=== PATIENT | male | born 1945 | race Caucasian/White ===

== ENCOUNTER 2018-01-09 08:27 | Day surgery (SDC) | payer MEDICARE, OTHER ==
[~2018-01-09 08:27] MED LIST: Lactated Ringers 1,000 ML IV SCH; Lidocaine 1% 2 ML ONE; Lidocaine 1%/Sod Bicarbonate in NS 8.4% 1 ML Syringe IDERM PRN; Propofol 200 MG/20 ML SDV ONE; Sodium Chloride 0.9% 10 ML Syringe FLUSH PRN
[2018-01-09] MEDS ORDERED: Propofol 200 MG/20 ML SDV ONE ×2 (09:20→10:03)
[2018-01-09] MEDS ORDERED: Lidocaine 1% 2 ML ONE (09:21)
--- NOTE | 2018-01-09 09:34 | PCM.PREANE ---
Preanesthetic Assessment - Anesthesia/Transfusion/Family Hx Anesthesia History: Prior Anesthesia Without Reaction Family History of Anesthesia Reaction: No - Review of Systems General: No Symptoms Pulmonary: Shortness of Breath (Chronic, COPD, Former Smoker, Feels good today. ), Other (Sleep Apnea, wears CPAP with sleep. ) Cardiovascular: No Symptoms, Other (CABG in 2003, denies chest pain episodes since. ) Neurological: Pre-Existing Deficit (Previous Cervical fusion, difficulty with side to side movement. ) Other: Reports: Diabetes (Type II on oral meications for control. 172 today at 0845. ) - Physical Assessment NPO Status Date: 01/09/18 NPO Status Time: 06:45 O2 Sat by Pulse Oximetry: 93 Respiratory Rate: 24 Vital Signs: Last Vital Signs Temp 36.6 C 01/09/18 08:35 Pulse 69 01/09/18 08:35 Resp 24 H 01/09/18 08:35 BP 147/78 H 01/09/18 08:35 Pulse Ox 93 L 01/09/18 08:35 ASA Class: 3 Mental Status: Alert & Oriented x3 Dentition: Reports: Normal Dentition Thyro-Mental Finger Breadths: 2 Mouth Opening Finger Breadths: 3 ROM/Head Extension: Full Lungs: Clear to Auscultation, Normal Respiratory Effort Cardiovascular: Regular Rate, Regular Rhythm - Lab Values: Laboratory Last Values POC Glucose 172 mg/dL (83-110) H 01/09/18 08:45 - Allergies Allergies/Adverse Reactions: Allergies Allergy/AdvReac Type Severity Reaction Status Date / Time No Known Allergies Allergy Verified 01/09/18 09:27 - Acknowledgements Anesthesia Type Planned: MAC Pt an Appropriate Candidate for the Planned Anesthesia: Yes Alternatives and Risks of Anesthesia Discussed w Pt/Guardian: Yes Pt/Guardian Understands and Agrees with Anesthesia Plan: Yes PreAnesthesia Questionnaire HEENT History: Reports: Hard of Hearing Cardiovascular History: Reports: Aneurysm, CAD, High Cholesterol, Hypertension Respiratory History: Reports: COPD, Sleep Apnea, Other (See Below) Other Respiratory History: lung nodules Genitourinary History: Reports: BPH, Other (See Below) Other Genitourinary History: renal cell ca Musculoskeletal History: Reports: Gout, Osteoarthritis Neurological History: Reports: None, Neuropathy, Diabetic Endocrine/Metabolic History: Reports: Diabetes, Type II Oncologic (Cancer) History: Reports: Other (See Below) Other Oncologic History: 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 - Past Surgical History Cardiovascular Surgical History: Reports: Coronary Artery Bypass Other Cardiovascular Surgeries/Procedures: 2 vessel GI Surgical History: Reports: Appendectomy, Colonoscopy Musculoskeletal Surgical History: Reports: Knee Replacement - SUBSTANCE USE Smoking Status *Q: Former Smoker Recreational Drug Use History: No - HOME MEDS Home Medications: Home Meds Allopurinol 100 mg PO DAILY 11/23/13 [History] Lisinopril [Prinivil] 10 mg PO DAILY 11/23/13 [History] Metoprolol Tartrate [Lopressor] 50 tab PO BID 11/23/13 [History] Tamsulosin HCl 0.4 mg PO DAILY 11/23/13 [History] Tiotropium [Spiriva Handihaler] 18 mcg INH DAILY 11/23/13 [History] atorvaSTATin [Lipitor] 40 mg PO BEDTIME 11/23/13 [History] Aspirin [Halfprin] 81 mg PO DAILY 09/10/14 [History] Gabapentin 600 mg PO BID 09/10/14 [History] metFORMIN [Glucophage XR] 500 mg PO DAILY 11/09/15 [History] - CURRENT (IN HOUSE) MEDS Current Meds: Current Medications Lactated Ringer's (Ringers, Lactated) 1,000 mls @ 125 mls/hr IV ASDIRECTED PEDRO Stop: 01/09/18 23:00 Last Admin: 01/09/18 08:48 Dose: 125 mls/hr Lidocaine/Sodium Bicarbonate (Buffered Lidocaine 1% In Ns 8.4%) 0.25 ml IDERM ONETIME PRN PRN Reason: Prior to IV Start Stop: 01/09/18 18:00 Sodium Chloride (Saline Flush) 10 ml FLUSH ASDIRECTED PRN PRN Reason: Keep Vein Open Stop: 01/09/18 18:00 Discontinued Medications Lidocaine HCl (Xylocaine-Mpf 1%) Confirm Administered Dose 4 mls @ as directed .ROUTE .STK-MED ONE Stop: 01/09/18 06:46 Lidocaine HCl (Xylocaine-Mpf 1%) Confirm Administered Dose 2 mls @ as directed .ROUTE .STK-MED ONE Stop: 01/09/18 09:22 Propofol (Diprivan 20 Ml) Confirm Administered Dose 200 mg .ROUTE .STK-MED ONE Stop: 01/09/18 06:42 Propofol (Diprivan 20 Ml) Confirm Administered Dose 200 mg .ROUTE .[facility] ONE Stop: 01/09/18 09:21
--- NOTE | 2018-01-09 10:27 | PCM48HPAN ---
Post Anesthesia Note - EVALUATION WITHIN 48HRS OF ANESTHETIC Vital Signs in Normal Range: Yes Patient Participated in Evaluation: Yes Respiratory Function Stable: Yes Airway Patent: Yes Cardiovascular Function Stable: Yes Hydration Status Stable: Yes Pain Control Satisfactory: Yes Nausea and Vomiting Control Satisfactory: Yes Mental Status Recovered: Yes Pulse Rate: 71 SaO2: 93 Resp Rate: 16 Temperature: 97.9 C Blood Pressure: 110/81 Pulse Rate: 71
[2018-01-09 11:02] VITALS: BP 117/81
--- NOTE | 2018-01-09 11:56 | OR ---
DATE OF OPERATION: 01/09/2018 SURGEON: Ras Champagne MD PREOPERATIVE DIAGNOSIS: Surveillance colonoscopy. POSTOPERATIVE DIAGNOSIS: Surveillance colonoscopy. OPERATION PERFORMED: Colonoscopy to cecum with removal of a flat 1 cm polyp in the ascending colon with cautery snare and retrieval in 2 morsels. FINDINGS: Flat polyp in the ascending colon about 1 cm and moderate sigmoid diverticulosis. There are no angiodysplasias, large tumor masses, ulcerations, or hemorrhoids. DESCRIPTION OF PROCEDURE: The patient was taken to the endoscopy room, placed in a supine position, connected to monitoring equipment, given IV sedation, placed in left lateral position. Perianal area was inspected and was normal. Rectal exam showed good sphincter tone. Video Olympus colonoscope was then introduced into the rectum and threaded up without problem to the cecum, where the appendicular orifice was noted. Prep was excellent throughout the colon. [place] cleansing score grade A. The scope was slowly withdrawn showing the cecum, ascending colon, transverse colon, descending colon, sigmoid colon, and rectum. Polyp on a fold was noted. It was sessile and was removed in 2 morsels by cautery snare and retrieved. A clip was placed on the cautery site. Specimen sent to pathology in a labeled container. The patient tolerated the procedure, sent to recovery room in a stable condition to be followed up in the clinic. ANESTHESIA: ESTIMATED BLOOD LOSS: MMODAL /[id number]
== END 2018-01-09 10:58 | disposition home or self-care (01) ==
LOC: JD.SDS 08:27
PROVIDERS: ATTEND Surgery
DX: Z12.11 Encounter for screening for malignant neoplasm of colon (principal); D12.2 Benign neoplasm of ascending colon; K57.30 Diverticulosis of large intestine without perforation or abscess without bleeding; I25.10 Atherosclerotic heart disease of native coronary artery without angina pectoris; I10 Essential (primary) hypertension; J44.9 Chronic obstructive pulmonary disease, unspecified; M10.9 Gout, unspecified; E11.40 Type 2 diabetes mellitus with diabetic neuropathy, unspecified; E78.5 Hyperlipidemia, unspecified; E66.9 Obesity, unspecified; Z68.36 Body mass index [BMI] 36.0-36.9, adult; G47.33 Obstructive sleep apnea (adult) (pediatric); Z99.89 Dependence on other enabling machines and devices; Z79.82 Long term (current) use of aspirin; Z79.84 Long term (current) use of oral hypoglycemic drugs; Z79.899 Other long term (current) drug therapy; Z87.891 Personal history of nicotine dependence; Z86.010 Personal history of colon polyps
CPT/HCPCS: 45385; 82962; 88305; J2704; J7120; 00811; J2001

== ENCOUNTER 2020-07-17 13:58 | Inpatient (IN) | payer MEDICARE, OTHER ==
--- NOTE | 2020-07-17 14:39 | EDM.PDOC ---
ED HPI GENERAL MEDICAL PROBLEM - General Chief Complaint: Syncope Stated Complaint: SYNCOPE Time Seen by Provider: 07/17/20 14:33 Source of Information: Reports: Patient, Family History Limitations: Reports: Other (can not remember how he ended up on the floor. ) - History of Present Illness INITIAL COMMENTS - FREE TEXT/NARRATIVE: 75-year-old male presents to the ED after awakening on the floor beside his bed in his bedroom this morning around 0700 hrs. He has no recollection of how he got down to the floor or when he may have fallen out of bed etc. He states he tried to get up and walk out to the living room but fell down again. He did not lose consciousness and remembers this fall. At present he he only has some pain in his left thigh. Denies any worsening cervical neck pain, headache nausea or vomiting.He did vomit once for no good reason two days ago. Unclear if he took his Metformin this morning earlier before he is fall. He does not leave believe he lost control of his bowel or bladder. Patient was aided out of the vehicle by his sister next door neighbor and his grandson with a shuffling type gait and seems to be extremely weak. Patient has a history of coronary artery disease having had triple bypass surgery carried out in 2002 or 2003. He is also had thoracic aortic graft placement. No past history of stroke. This history was provided by his daughter. Onset: Today Onset Date: 07/17/20 (Awoke on the floor beside his bed this morning around 0700 hrs. He has no recollection of how or how long he has been on the floor. Not sure if he rolled out of bed or fell during the night. He got up and staggered out to the living room and fell again. He never lost consciousness or hit his h ead and he got himself back up at that time.) Onset Time: 07:00 Duration: Other Location: Reports: Generalized (Sense of generalized weakness with difficulty walking.) Quality: Reports: Other (Syncope versus) Severity: Moderate (fall at home x2 today.) Improves with: Reports: None Worsens with: Reports: Other (Worse with standing up or trying to walk.) Context: Denies: Activity, Exercise, Lifting, Sick Contact, Trauma, Other Associated Symptoms: Reports: Cough, Malaise, Nausea/Vomiting, Shortness of Breath, Weakness (Vomited spontaneously 3 days ago but just the one time.). 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 (see below) (He has taken none of his medications so far today.) Back Pain Score (Numeric/FACES): 3 - Related Data Allergies Allergy/AdvReac Type Severity Reaction Status Date / Time No Known Allergies Allergy Verified 01/09/18 09:27 Home Meds: Home Meds Metoprolol Tartrate [Lopressor] 50 tab PO BID 11/23/13 [History] Tamsulosin HCl 0.4 mg PO DAILY 11/23/13 [History] Tiotropium [Spiriva Handihaler] 18 mcg INH DAILY 11/23/13 [History] allopurinoL [Allopurinol] 100 mg PO DAILY 11/23/13 [History] atorvaSTATin [Lipitor] 40 mg PO BEDTIME 11/23/13 [History] lisinopriL [Prinivil] 10 mg PO DAILY 11/23/13 [History] Aspirin [Halfprin] 81 mg PO DAILY 09/10/14 [History] Gabapentin 600 mg PO BID 09/10/14 [History] metFORMIN [Glucophage XR] 500 mg PO DAILY 11/09/15 [History] Past Medical History HEENT History: Reports: Hard of Hearing Cardiovascular History: Reports: Aneurysm, CAD, High Cholesterol, Hypertension Respiratory History: Reports: COPD, Sleep Apnea, Other (See Below) Other Respiratory History: lung nodules Genitourinary History: Reports: BPH, Other (See Below) Other Genitourinary History: renal cell ca Musculoskeletal History: Reports: Back Pain, Chronic, Gout, Osteoarthritis, Other (See Below) (Both knees have been replaced totally.) Neurological History: Reports: None, Neuropathy, Diabetic Endocrine/Metabolic History: Reports: Diabetes, Type II (Controlled with diet and Metformin.) Oncologic (Cancer) History: Reports: Other (See Below) Other Oncologic History: 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 - Past Surgical History Cardiovascular Surgical History: Reports: Coronary Artery Bypass Other Cardiovascular Surgeries/Procedures: 2 vessel GI Surgical History: Reports: Appendectomy, Colonoscopy Musculoskeletal Surgical History: Reports: Knee Replacement, Other (See Below) (Previous cervical spine fusion he believes at C6-C7 level.) Social & Family History - Caffeine Use Caffeine Use: Reports: Coffee - Living Situation & Occupation Living situation: Reports: Occupation: Retired ED ROS GENERAL - Review of Systems Review Of Systems: See Below Constitutional: Reports: Malaise, Weakness, Fatigue, Decreased Appetite (Not eaten much for the last 2 to 3 days.). Denies: Fever, Chills HEENT: Reports: Glasses, Hearing Loss, Other (Does have some visual acuity problems with mild macular degeneration.) Respiratory: Reports: Shortness of Breath (Mildly hard of hearing.), Cough, Other ( Has known COPD but is not oxygen dependent.). Denies: Pleuritic Chest Pain (Has sleep apnea syndrome and does wear CPAP machine.) Cardiovascular: Reports: Dyspnea on Exertion, Lightheadedness (Blood pressure often runs too low.). Denies: Chest Pain, Blood Pressure Problem (Is to run on the low side.), Edema Endocrine: Reports: Fatigue GI/Abdominal: Reports: Constipation, Other (He reports he is hungry at this point in time.). Denies: Abdominal Pain, Distension, Flatus, Hematemesis, Hematochezia, Melena, Nausea : Reports: Frequency, Other (Terrell usually x3. Slow urinary stream. Known to have BPH. No history of previous UTI) Musculoskeletal: Reports: Back Pain, Joint Pain (Both knees have been replaced in the past. Has chronic shoulder pain chronic left-sided cervical neck pain chronic hip pain) Skin: Reports: Other (Tree of cellulitis left lower extremity. Currently has a rash in his left lower extremity which is petechial hemorrhages in the left lower extremity from chronic dependent edema. This is the leg that he had the veins harvested from for his bypass surgery.) Neurological: Reports: Confusion (Confusion as to how he ended up on the floor beside his bed this morning. He is not sure if he rolled out of bed or fell during the night.), Dizziness, Difficulty Walking (Both lower extremities), Weakness, Gait Disturbance, Other (Usually walks with no gait aid.). Denies: Headache, Numbness, Syncope, Tingling, Tremors, Trouble Speaking ( marked difficulty walking. Two-person assist.), Change in Speech Psychiatric: Denies: No Symptoms, Anxiety, Confusion, Cravings, Depression, Homicidal Ideation, Mood Lability, Suicidal Ideation Hematologic/Lymphatic: Reports: No Symptoms Immunologic: Reports: No Symptoms - Physical Exam Exam: See Below Exam Limited By: No Limitations General Appearance: Alert, WD/WN, No Apparent Distress, Other (He appears mild to be pallid and tired in appearance. He does not feel warm to palpation. Temperature is 36.4 heart rate 115 and sinus tachycardia on the monitor respiratory to 36 with O2 sats of 92% room air BP 100/68.) Eye Exam: Bilateral Eye: Normal Inspection (No blepharal pallor or scleral icterus.), PERRL (No gaze palsy no diplopia. No anisocoria) Throat/Mouth: Normal Inspection, Normal Lips, Normal Oropharynx, Other (Tongue is dry and coated and fissured.). No: Normal Teeth Head Exam: Atraumatic, Normocephalic, Other (No outward signs of any head or facial trauma.) Neck: Full Range of Motion (Full range of motion of neck but pain with looking to the right. Pain left lower neck area), Other (Reports he has chronic cervical neck pain with previous spinal fusion at 2 levels he believes C6-C7.). No: Supple, Carotid Bruit, Lymphadenopathy (L), Lymphadenopathy (R) Respiratory/Chest: Respiratory Distress, Decreased Breath Sounds, Rales (Tachypnea at rest. Decreased air entry to both lower lung c[place]). No: Lungs Clear, Normal Breath Sounds ( scattered rales both lower lung ced[place].), Wheezing Cardiovascular: No Gallop, No Murmur, No Rub, Tachycardia (Sinus tachycardia at rest). No: Normal Peripheral Pulses GI/Abdominal: Normal Bowel Sounds, Soft, Non-Tender, No Mass, Pelvis Stable, Other (Umbilical hernia which is easily reducible.). No: Guarding, Rigid, Rebound Rectal (Males) Exam: Normal Rectal Tone, BPH (Prostate is approximately 3-1/2 times normal size with the right lobe slightly more prominent than the left. No definitive induration or fluctuation identified.). No: Prostate Normal Neuro Exam (Abbreviated): Alert, Oriented, CN II-XII Intact, Normal Cognition, Other (Clinically has decreased sensation in the stocking pattern of both feet suspect diabetic peripheral neuropathy). No: Normal Gait DTR: 0: Achilles (R), Achilles (L), 1+: Bicep (R), Bicep (L), Patella (R), Patella (L) Back Exam: Normal Inspection, Decreased Range of Motion (Trouble sitting up from the position in bed.). No: CVA Tenderness (L), CVA Tenderness (R) Extremities: Pedal Edema (He has 2+ pitting edema left lower extremity with diffuse petechial hemorrhages both particularly medial aspect of the left lower leg as well as odor or lateral leg. This will turn to venous stasis dermatitis. There is no evidence of cellulitis) Psychiatric: Normal Affect, Normal Mood Skin Exam: Warm, Intact, Normal Color, Other (TQ-like rash left lower extremity due to edema of the left lower extremity.) #1 Interpretation EKG Date: 07/17/20 Time: 15:16 Rhythm: Other Rate (Beats/Min): 113 [place]: LAD-Left [place] Deviation (-65 degrees) P-Wave: Present (First-degree AV block) QRS: Other (Abnormal R wave progression with delayed transition decreased voltage limb leads) QT: Prolonged (Mildly prolonged) EKG Interpretation Comments: Abnormal ECG Course - Vital Signs Last Recorded V/S: Last Vital Signs Temp 36.4 C 07/17/20 14:20 Pulse 115 H 07/17/20 14:20 Resp 36 H 07/17/20 14:20 BP 100/68 07/17/20 14:20 Pulse Ox 88 L 07/17/20 15:50 Orthostatic Blood Pressure [ 102/78 Standing] Orthostatic Blood Pressure [ 122/76 Sitting] Orthostatic Blood Pressure [ 100/68 Supine] - Orders/Labs/Meds Orders: Active Orders 24 hr Category Date Time Status Admission Status [Patient Status] [ADT] Routine ADT 07/17/20 18:23 Active Blood Glucose Check, Bedside [RC] ONETIME Care 07/17/20 15:14 Active EKG Documentation Completion [RC] STAT Care 07/17/20 14:36 Active EKG Documentation Completion [RC] STAT Care 07/17/20 14:39 Active Oxygen Therapy [RC] ASDIRECTED Care 07/17/20 14:36 Active Chest 1V Frontal [CR] Stat Exams 07/17/20 14:36 Taken CULTURE BLOOD [BC] Stat Lab 07/17/20 15:05 Received CULTURE BLOOD [BC] Stat Lab 07/17/20 15:15 Received LACTIC ACID [CHEM] Stat Lab 07/17/20 20:00 Ordered TROPONIN I [CHEM] Stat Lab 07/17/20 20:00 Ordered URIC ACID, URINE Stat Lab 07/17/20 16:45 Received Blood Culture x2 Reflex Set [OM.PC] Stat Oth 07/17/20 14:37 Ordered Labs: Laboratory Tests 07/17/20 07/17/20 07/17/20 Range/Units 15:05 15:05 15:05 WBC 15.19 H (4.23-9.07) K/mm3 RBC 5.22 (4.63-6.08) M/mm3 Hgb 15.2 (13.7-17.5) gm/dl Hct 45.1 (40.1-51.0) % MCV 86.4 (79.0-92.2) fl MCH 29.1 (25.7-32.2) pg MCHC 33.7 (32.2-35.5) g/dl RDW Std Deviation 43.3 (35.1-43.9) fL Plt Count 167 (163-337) K/mm3 MPV 9.7 (9.4-12.3) fl Neut % (Auto) 85.1 H (34.0-67.9) % Lymph % (Auto) 6.1 L (21.8-53.1) % [place] % (Auto) 8.4 (5.3-12.2) % Eos % (Auto) 0 L (0.8-7.0) Baso % (Auto) 0.1 (0.1-1.2) % Neut # (Auto) 12.95 H (1.78-5.38) K/mm3 Lymph # (Auto) 0.92 L (1.32-3.57) K/mm3 [place] # (Auto) 1.27 H (0.30-0.82) K/mm3 Eos # (Auto) 0.00 L (0.04-0.54) K/mm3 Baso # (Auto) 0.01 (0.01-0.08) K/mm3 Manual Slide Review Abnormal smear ESR (0-15) mm/hr PT 11.1 (9.7-12.0) SECONDS INR 1.04 APTT 25.2 (21.7-31.4) SECONDS Sodium 136 (136-145) mEq/L Potassium 4.1 (3.5-5.1) mEq/L Chloride 99 (98-107) mEq/L Carbon Dioxide 22 (21-32) mEq/L Anion Gap 19.1 H (5-15) BUN 25 H (7-18) mg/dL Creatinine 1.6 H (0.7-1.3) mg/dL Est Cr Clr Drug Dosing 43.70 mL/min Estimated GFR (MDRD) 42 (>60) mL/min BUN/Creatinine Ratio 15.6 (14-18) Glucose 270 H (83-115) mg/dL POC Glucose (83-110) mg/dL Hemoglobin A1c ( - 5.6) % Lactic Acid (0.4-2.0) mmol/L Calcium 9.8 (8.5-10.1) mg/dL Magnesium 1.8 (1.8-2.4) mg/dl Total Bilirubin 0.8 (0.2-1.0) mg/dL AST 36 (15-37) U/L ALT 39 (16-63) U/L Alkaline Phosphatase 69 (46-116) U/L Creatine Kinase (39-308) U/L CK-MB (CK-2) 9.0 H (0-3.6) ng/ml Troponin I 0.229 H* (0.00-0.056) ng/mL C-Reactive Protein 21.2 H* (<1.0) mg/dL NT-Pro-B Natriuret Pep (0-450) pg/mL Total Protein 7.7 (6.4-8.2) g/dl Albumin 3.6 (3.4-5.0) g/dl Globulin 4.1 gm/dL Albumin/Globulin Ratio 0.9 L (1-2) Urine Color (Yellow) Urine Appearance (Clear) Urine pH (5.0-8.0) Ur Specific [place] (1.005-1.030) Urine Protein (Negative) Urine Glucose (UA) (Negative) Urine Ketones (Negative) Urine Occult Blood (Negative) Urine Nitrite (Negative) Urine Bilirubin (Negative) Urine Urobilinogen (0.2-1.0) Ur Leukocyte Esterase (Negative) U Hyaline Cast (Auto) (0-5) /lpf Urine RBC (0-5) /hpf Urine WBC (0-5) /hpf Ur Epithelial Cells (0-5) /hpf Urine Bacteria (FEW) /hpf Urine Mucus (FEW) /hpf Urine Yeast (NOT SEEN) Ethyl Alcohol (0.00) gm% SARS-CoV-2 RNA (AMALIA) (NEGATIVE) 07/17/20 07/17/20 07/17/20 Range/Units 15:05 15:05 15:05 WBC (4.23-9.07) K/mm3 RBC (4.63-6.08) M/mm3 Hgb (13.7-17.5) gm/dl Hct (40.1-51.0) % MCV (79.0-92.2) fl MCH (25.7-32.2) pg MCHC (32.2-35.5) g/dl RDW Std Deviation (35.1-43.9) fL Plt Count (163-337) K/mm3 MPV (9.4-12.3) fl Neut % (Auto) (34.0-67.9) % Lymph % (Auto) (21.8-53.1) % [place] % (Auto) (5.3-12.2) % Eos % (Auto) (0.8-7.0) Baso % (Auto) (0.1-1.2) % Neut # (Auto) (1.78-5.38) K/mm3 Lymph # (Auto) (1.32-3.57) K/mm3 [place] # (Auto) (0.30-0.82) K/mm3 Eos # (Auto) (0.04-0.54) K/mm3 Baso # (Auto) (0.01-0.08) K/mm3 Manual Slide Review ESR 20 H (0-15) mm/hr PT (9.7-12.0) SECONDS INR APTT (21.7-31.4) SECONDS Sodium (136-145) mEq/L Potassium (3.5-5.1) mEq/L Chloride (98-107) mEq/L Carbon Dioxide (21-32) mEq/L Anion Gap (5-15) BUN (7-18) mg/dL Creatinine (0.7-1.3) mg/dL Est Cr Clr Drug Dosing mL/min Estimated GFR (MDRD) (>60) mL/min BUN/Creatinine Ratio (14-18) Glucose (83-115) mg/dL POC Glucose (83-110) mg/dL Hemoglobin A1c ( - 5.6) % Lactic Acid (0.4-2.0) mmol/L Calcium (8.5-10.1) mg/dL Magnesium (1.8-2.4) mg/dl Total Bilirubin (0.2-1.0) mg/dL AST (15-37) U/L ALT (16-63) U/L Alkaline Phosphatase (46-116) U/L Creatine Kinase 1245 H (39-308) U/L CK-MB (CK-2) (0-3.6) ng/ml Troponin I (0.00-0.056) ng/mL C-Reactive Protein (<1.0) mg/dL NT-Pro-B Natriuret Pep 1919 H (0-450) pg/mL Total Protein (6.4-8.2) g/dl Albumin (3.4-5.0) g/dl Globulin gm/dL Albumin/Globulin Ratio (1-2) Urine Color (Yellow) Urine Appearance (Clear) Urine pH (5.0-8.0) Ur Specific [place] (1.005-1.030) Urine Protein (Negative) Urine Glucose (UA) (Negative) Urine Ketones (Negative) Urine Occult Blood (Negative) Urine Nitrite (Negative) Urine Bilirubin (Negative) Urine Urobilinogen (0.2-1.0) Ur Leukocyte Esterase (Negative) U Hyaline Cast (Auto) (0-5) /lpf Urine RBC (0-5) /hpf Urine WBC (0-5) /hpf Ur Epithelial Cells (0-5) /hpf Urine Bacteria (FEW) /hpf Urine Mucus (FEW) /hpf Urine Yeast (NOT SEEN) Ethyl Alcohol 0.00 (0.00) gm% SARS-CoV-2 RNA ([place]) (NEGATIVE) 07/17/20 07/17/20 07/17/20 Range/Units 15:05 15:13 15:43 WBC (4.23-9.07) K/mm3 RBC (4.63-6.08) M/mm3 Hgb (13.7-17.5) gm/dl Hct (40.1-51.0) % MCV (79.0-92.2) fl MCH (25.7-32.2) pg MCHC (32.2-35.5) g/dl RDW Std Deviation (35.1-43.9) fL Plt Count (163-337) K/mm3 MPV (9.4-12.3) fl Neut % (Auto) (34.0-67.9) % Lymph % (Auto) (21.8-53.1) % [place] % (Auto) (5.3-12.2) % Eos % (Auto) (0.8-7.0) Baso % (Auto) (0.1-1.2) % Neut # (Auto) (1.78-5.38) K/mm3 Lymph # (Auto) (1.32-3.57) K/mm3 [place] # (Auto) (0.30-0.82) K/mm3 Eos # (Auto) (0.04-0.54) K/mm3 Baso # (Auto) (0.01-0.08) K/mm3 Manual Slide Review ESR (0-15) mm/hr PT (9.7-12.0) SECONDS INR APTT (21.7-31.4) SECONDS Sodium (136-145) mEq/L Potassium (3.5-5.1) mEq/L Chloride (98-107) mEq/L Carbon Dioxide (21-32) mEq/L Anion Gap (5-15) BUN (7-18) mg/dL Creatinine (0.7-1.3) mg/dL Est Cr Clr Drug Dosing mL/min Estimated GFR (MDRD) (>60) mL/min BUN/Creatinine Ratio (14-18) Glucose (83-115) mg/dL POC Glucose (83-110) mg/dL Hemoglobin A1c 8.1 H ( - 5.6) % Lactic Acid 3.1 H* (0.4-2.0) mmol/L Calcium (8.5-10.1) mg/dL Magnesium (1.8-2.4) mg/dl Total Bilirubin (0.2-1.0) mg/dL AST (15-37) U/L ALT (16-63) U/L Alkaline Phosphatase (46-116) U/L Creatine Kinase (39-308) U/L CK-MB (CK-2) (0-3.6) ng/ml Troponin I (0.00-0.056) ng/mL C-Reactive Protein (<1.0) mg/dL NT-Pro-B Natriuret Pep (0-450) pg/mL Total Protein (6.4-8.2) g/dl Albumin (3.4-5.0) g/dl Globulin gm/dL Albumin/Globulin Ratio (1-2) Urine Color (Yellow) Urine Appearance (Clear) Urine pH (5.0-8.0) Ur Specific [place] (1.005-1.030) Urine Protein (Negative) Urine Glucose (UA) (Negative) Urine Ketones (Negative) Urine Occult Blood (Negative) Urine Nitrite (Negative) Urine Bilirubin (Negative) Urine Urobilinogen (0.2-1.0) Ur Leukocyte Esterase (Negative) U Hyaline Cast (Auto) (0-5) /lpf Urine RBC (0-5) /hpf Urine WBC (0-5) /hpf Ur Epithelial Cells (0-5) /hpf Urine Bacteria (FEW) /hpf Urine Mucus (FEW) /hpf Urine Yeast (NOT SEEN) Ethyl Alcohol (0.00) gm% SARS-CoV-2 RNA ([place]) Negative (NEGATIVE) 07/17/20 07/17/20 Range/Units 15:45 16:45 WBC (4.23-9.07) K/mm3 RBC (4.63-6.08) M/mm3 Hgb (13.7-17.5) gm/dl Hct (40.1-51.0) % MCV (79.0-92.2) fl MCH (25.7-32.2) pg MCHC (32.2-35.5) g/dl RDW Std Deviation (35.1-43.9) fL Plt Count (163-337) K/mm3 MPV (9.4-12.3) fl Neut % (Auto) (34.0-67.9) % Lymph % (Auto) (21.8-53.1) % [place] % (Auto) (5.3-12.2) % Eos % (Auto) (0.8-7.0) Baso % (Auto) (0.1-1.2) % Neut # (Auto) (1.78-5.38) K/mm3 Lymph # (Auto) (1.32-3.57) K/mm3 [place] # (Auto) (0.30-0.82) K/mm3 Eos # (Auto) (0.04-0.54) K/mm3 Baso # (Auto) (0.01-0.08) K/mm3 Manual Slide Review ESR (0-15) mm/hr PT (9.7-12.0) SECONDS INR APTT (21.7-31.4) SECONDS Sodium (136-145) mEq/L Potassium (3.5-5.1) mEq/L Chloride (98-107) mEq/L Carbon Dioxide (21-32) mEq/L Anion Gap (5-15) BUN (7-18) mg/dL Creatinine (0.7-1.3) mg/dL Est Cr Clr Drug Dosing mL/min Estimated GFR (MDRD) (>60) mL/min BUN/Creatinine Ratio (14-18) Glucose (83-115) mg/dL POC Glucose 262 H (83-110) mg/dL Hemoglobin A1c ( - 5.6) % Lactic Acid (0.4-2.0) mmol/L Calcium (8.5-10.1) mg/dL Magnesium (1.8-2.4) mg/dl Total Bilirubin (0.2-1.0) mg/dL AST (15-37) U/L ALT (16-63) U/L Alkaline Phosphatase (46-116) U/L Creatine Kinase (39-308) U/L CK-MB (CK-2) (0-3.6) ng/ml Troponin I (0.00-0.056) ng/mL C-Reactive Protein (<1.0) mg/dL NT-Pro-B Natriuret Pep (0-450) pg/mL Total Protein (6.4-8.2) g/dl Albumin (3.4-5.0) g/dl Globulin gm/dL Albumin/Globulin Ratio (1-2) Urine Color Yellow (Yellow) Urine Appearance Clear (Clear) Urine pH 5.5 (5.0-8.0) Ur Specific [place] > or = 1.030 (1.005-1.030) Urine Protein 3+ H (Negative) Urine Glucose (UA) 2+ H (Negative) Urine Ketones Trace H (Negative) Urine Occult Blood 3+ H (Negative) Urine Nitrite Negative (Negative) Urine Bilirubin Negative (Negative) Urine Urobilinogen 0.2 (0.2-1.0) Ur Leukocyte Esterase Negative (Negative) U Hyaline Cast (Auto) 10-20 H (0-5) /lpf Urine RBC 0-5 (0-5) /hpf Urine WBC 0-5 (0-5) /hpf Ur Epithelial Cells 0-5 (0-5) /hpf Urine Bacteria Moderate H (FEW) /hpf Urine Mucus Few (FEW) /hpf Urine Yeast Rare (NOT SEEN) Ethyl Alcohol (0.00) gm% SARS-CoV-2 RNA ([place]) (NEGATIVE) Meds: Medications Discontinued Medications Generic Name Dose Route Start Last Admin Trade Name Lachoq PRN Reason Stop Dose Admin Acetaminophen 975 mg 07/17/20 16:33 07/17/20 16:59 Tylenol PO 07/17/20 16:34 975 mg ONETIME ONE Administration Dextrose/Sodium Chloride 1,000 mls @ 125 mls/hr 07/17/20 14:45 Dextrose 5%-Normal Saline IV ASDIRECTED [facility] Sodium Chloride Confirm 07/17/20 15:47 07/17/20 15:52 Normal Saline Administered 07/17/20 15:48 Not Given Dose 1,000 mls @ as directed .ROUTE .STK-MED ONE Sodium Chloride 500 mls @ 999 mls/hr 07/17/20 15:47 07/17/20 15:50 Normal Saline IV 07/17/20 16:17 999 mls/hr .BOLUS ONE Administration Sodium Chloride 1,000 mls @ 999 mls/hr 07/17/20 16:35 07/17/20 17:35 Normal Saline IV 07/17/20 17:35 999 mls/hr ONETIME ONE Administration Ceftriaxone Sodium 2 gm/ 100 mls @ 200 mls/hr 07/17/20 16:50 07/17/20 17:01 Sodium Chloride IV 07/17/20 17:19 200 mls/hr ONETIME ONE Administration Vancomycin HCl 2 gm/ Sodium 500 mls @ 250 mls/hr 07/17/20 18:20 Chloride IV 07/17/20 18:21 ONETIME ONE Sodium Chloride Confirm 07/17/20 19:37 Normal Saline Administered 07/17/20 19:38 Dose 250 mls @ as directed .ROUTE .STK-MED ONE Vancomycin HCl Confirm 07/17/20 19:29 Vancomycin Administered 07/17/20 19:30 Dose 1 gm [facility]iology Interpretation Free Text/Narrative:: 75-year-old male presents to the ED in the company of a sister and next-door neighbor and the patient's grandson. It is unclear how he wound up on the floor beside his bed this morning at 0700 hrs. He cannot remember how he got there or when he got there. He remembers getting up to get out to the living room and once again fell in the living room and had a great deal of trouble getting back up. He denies headache. He states he has not eaten much in the last 2 to 3 days. He still states he has been taking his Metformin for diabetes and has not checked his sugars. Family brought him to the ED with 2-3 person assist with a shuffling type gait by the patient. His only pain is in his left anterior thigh. He has a history of severe coronary disease requiring quadruple bypass in 2002 or 2003. 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 Type 2 diabetes for greater than 5 years. Denies any recent chest pain denies headache. Because of weakness has yet to be determined. He is afebrile on initial evaluation he is sinus tachycardia at 11 3/min at bedside. He appears volume depleted. Patient will be given a 250 mill fluid bolus and then D5 normal saline at [address] head to be done chest x-ray ECG routine labs blood cultures x2 and a COVID-19 screen as it appears he is likely going to need admission to the hospital. Has a history of prostatism no history of urinary tract infection. - Re-Assessments/Exams Free Text/Narrative Re-Assessment/Exam: 07/17/20 15:27 CT head has been completed without contrast. Ventricles along with the basal cisterns and sulci of the convexities are mildly prominent. Minimal diminished density is noted within the periventricular white matter. No other abnormal parenchymal densities are appreciated. No evidence of intracranial hemorrhage or midline shift or mass-effect is seen. 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 Atherosclerotic calcification is also appreciated within the carotid siphon. Bone window settings were reviewed which show no acute calvarial findings visualized mastoid sinuses and paranasal sinuses showed nothing acute 07/17/20 15:34 Portable chest x-ray reveals normal-sized heart with mild tortuous thoracic aorta. He does have a 12 mm x 5 mm nodule right middle lobe of lung field with well demarcated borders. No pleural effusion no pneumothorax.Hematology reveals an elevated white count at 15.19 with 85.1% neutrophils on the auto differential. Hemoglobin is 15.2 with hematocrit of 45.1 platelet count 167,000. 07/17/20 15:51 blood sugar was reported to be 262 at the bedside. IV fluids will be changed to normal saline. He will be given a 500 mill fluid bolus then 150 mils per hour. 07/17/20 16:21 Hematology smear reveals adequate platelets with normal morphology. White count shows neutrophilia with lymphopenia few few neutrophils and bands cells seen. PT is 11.1 with an INR of 1.04. PTT is 25.2. Sodium 136 with a potassium of 4.1 chloride of 99 a bicarb of 22. Anion gap is elevated at 19.1. BUN is 25 with a creatinine of 1.6 and a GFR 42. Patient appears to be volume depleted glucose is elevated at 270 in the lab was 262 at the bedside. Hemoglobin A1c is elevated at 8.1. Calcium is 9.8 with a magnesium of 1.8 liver function is normal CPK is 1245. CK-MB fraction is markedly elevated at 9.0 likely due to the elevated total CPK. Troponin I however is elevated at 0.229 worrisome for underlying coronary artery disease. C-reactive protein is markedly elevated at 21.2 suggestive of an infection. BNP is 1919. Total protein is 7.7 with an albumin fraction of 3.7 .Blood alcohol is 0.00. COVID-19 screen is negative. Sed rate is 20. Plan will be to continue IV normal saline up to a total of 3 L per sepsis protocol. 07/17/20 16:34 Reexamination the patient now is definitely febrile to exam. Blood pressure has fallen to 98/63 with a heart rate of 113/min. He is not yet been able to void. He has had a 500 mils fluid bolus. IV will now be opened up to full. We will give him Tylenol 975 mg for fever relief 07/17/20 16:49 Lactic acid came back at 3.1. Repeat lactic acid will be done at 2000 hrs. IV is normal saline at open. Patient will be given IV antibiotics Rocephin 2 g intravenously as soon as cath urine specimen is obtained for culture. Patient will require admission to the hospital and I will therefore contact on-call hospitalist Dr. Alejandra in this regard. 07/17/20; 17;10: Dr. Maddox did come to the department and we discussed the patient need to come into the hospital as he is unable to walk and appears to have an underlying infective process of unclear etiology at this time. Urinalysis is not yet back and it appears that catheterize specimen will have to be obtained. 07/17/20 18:19 Urinalysis shows 3+ proteinuria 2+ glucosuria 3+ occult blood negative leukocyte esterase but 10-20 hyaline casts moderate bacteria urine culture has been ordered. Patient has received 2 L of normal saline thus far and blood pressure is stabilized at 113/82. 07/17/20 18:20 the source of this patient's infection is not yet been declared. We will await culture reports. I am Going to give him vancomycin 2 g IV as he is at risk of MRSA due to being diabetic. This will cover him for the next 24 hours. 07/17/20 20:10 Patient is due for repeat lactic acid and cardiac markers at 2000 hrs. spoken to one of the patient's daughters--Karrie whom resides in [place]. She had concerns about the elevated troponin not being addressed sooner. She was concerned that the patient was no longer a candidate for thrombolytics. Thrombolytics are not indicated for non-STEMI myocardial infarction's at any rate. However heparin infusion would be started if we felt that he did indeed have a myocardial infarction. His ECG does not show any signs of acute ischemic change at this time. Elevated troponin is most likely secondary to chronic congestive failure and renal insufficiency. Repeat serum troponin is pending as it was drawn at 2000 hrs. Patient has subsequently been admitted to the med surgery floor and Dr. Maddox hospitalist has now taken over care. Patient is being admitted primarily for suspect infective process with early sepsis of unclear etiology. I have provided Dr. Maddox with Karrie's phone number in [place] and she wishes to be notified of the laboratory results I lactic acid and serum troponin values once they become available. Departure - Departure Time of Disposition: 18:21 Disposition: Admitted As Inpatient 64 Condition: Fair Clinical Impression: Generalized weakness Fall as cause of accidental injury at home as place of occurrence Qualifiers: Encounter type: initial encounter Qualified Code(s): W19.XXXA - Unspecified fall, initial encounter Contusion of right hip and thigh Qualifiers: Encounter type: initial encounter Qualified Code(s): S70.01XA - Contusion of right hip, initial encounter Diabetes mellitus Qualifiers: Chronic kidney disease stage: stage 3 (moderate) CHF (congestive heart failure), NYHA class III Qualifiers: Congestive heart failure type: diastolic Congestive heart failure chronicity: acute on chronic Qualified Code(s): I50.33 - Acute on chronic diastolic (congestive) heart failure - Discharge Information Sepsis Event Note (ED) - Evaluation Sepsis Screening Result: No Definite Risk - Focused Exam Vital Signs: Vital Signs Temp Pulse Resp BP Pulse Ox Pulse Ox 07/17/20 15:50 88 L 07/17/20 14:20 36.4 C 115 H 36 H 100/68 91 L - My Orders Last 24 Hours: My Active Orders 07/17/20 14:36 EKG Documentation Completion [RC] STAT Oxygen Therapy [RC] ASDIRECTED Chest 1V Frontal [CR] Stat 07/17/20 14:37 Blood Culture x2 Reflex Set [OM.PC] Stat 07/17/20 14:39 EKG Documentation Completion [RC] STAT 07/17/20 15:05 CULTURE BLOOD [BC] Stat 07/17/20 15:14 Blood Glucose Check, Bedside [RC] ONETIME 07/17/20 15:15 CULTURE BLOOD [BC] Stat 07/17/20 16:45 URIC ACID, URINE Stat 07/17/20 18:23 Admission Status [Patient Status] [ADT] Routine 07/17/20 20:00 LACTIC ACID [CHEM] Stat TROPONIN I [CHEM] Stat - Assessment/Plan Last 24 Hours: My Active Orders 07/17/20 14:36 EKG Documentation Completion [RC] STAT Oxygen Therapy [RC] ASDIRECTED Chest 1V Frontal [CR] Stat 07/17/20 14:37 Blood Culture x2 Reflex Set [OM.PC] Stat 07/17/20 14:39 EKG Documentation Completion [RC] STAT 07/17/20 15:05 CULTURE BLOOD [BC] Stat 07/17/20 15:14 Blood Glucose Check, Bedside [RC] ONETIME 07/17/20 15:15 CULTURE BLOOD [BC] Stat 07/17/20 16:45 URIC ACID, URINE Stat 07/17/20 18:23 Admission Status [Patient Status] [ADT] Routine 07/17/20 20:00 LACTIC ACID [CHEM] Stat TROPONIN I [CHEM] Stat
[2020-07-17] MEDS ORDERED: Dextrose 5%-0.9% NaCl 1,000 ML IV SCH (14:45)
--- NOTE | 2020-07-17 15:06 | CT ---
Head CT Technique: Multiple axial sections through the brain were obtained. Intravenous contrast was not utilized. Comparison: No prior intracranial imaging is available. Findings: Ventricles along the basal cisterns and sulci of the convexities are mildly prominent. Minimal diminished density is noted within the periventricular white matter. No other abnormal parenchymal densities are appreciated. No evidence of intracranial hemorrhage. No midline shift or mass-effect is seen. 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 Atherosclerotic calcification is also noted within the carotid siphon. Bone window settings were reviewed which show no acute calvarial finding. Visualized mastoid sinuses and visualized paranasal sinuses show nothing acute. Impression: 1. Mild senescent change as noted above. 2. Nothing acute is appreciated. Diagnostic code #2
[2020-07-17] MEDS ORDERED: Sodium Chloride 0.9% 1,000 ML ONE (15:47)
[2020-07-17] MEDS ORDERED: Sodium Chloride 0.9% 500 ML IV ONE (15:47)
[2020-07-17 15:50] LABS: HEMOGLOBIN A1C 8.1 %
[2020-07-17] MEDS ORDERED: Acetaminophen 325 MG Tab PO ONE (16:33)
[2020-07-17] MEDS ORDERED: Sodium Chloride 0.9% 1,000 ML IV ONE (16:35)
[2020-07-17] MEDS ORDERED: cefTRIAXone 2 GM in Sodium Chloride 0.9% 100 ML IV ONE (16:50)
[2020-07-17] MEDS ORDERED: Vancomycin 2 GM in Sodium Chloride 0.9% 500 ML IV ONE ×2 (18:20→21:30)
[2020-07-17] MEDS ORDERED: Vancomycin 1 GM SDV ONE (19:29)
[2020-07-17] MEDS ORDERED: Sodium Chloride 0.9% 250 ML ONE (19:37)
--- NOTE | 2020-07-17 21:15 | PCM.HP.2 ---
H&P History of Present Illness - General Date of Service: 07/17/20 Admit Problem/Dx: Admission Diagnosis/Problem Admission Diagnosis/Problem Fall as cause of accidental injury in home as place of occurrence - History of Present Illness Initial Comments - Free Text/Narative: 75-year-old male with history of coronary artery disease and coronary bypass surgery presented to the emergency department after waking up on the floor at 0700 hrs. this morning. Patient does not know how he got on the floor, but when he tried to get up and walk he fell back down. He tried to crawl to a piece of furniture to pick him self up, but was unable to. Family member did help him get into the car who took him to the hospital. Patient denies any chest pain, worsening of his shortness of breath, nausea, or vomiting. He states he has been getting weaker over the last 3 days. He has a history of being hospitalized secondary to a left lower leg cellulitis. His triple bypass coronary artery surgery was done in 2002 or 2003 and he has also had a thoracic aortic graft placement. His cardiothoracic surgeon is Dr. Pandey from [facility] in [place]. Back Pain Score (Numeric/FACES): 3 - Related Data Allergies/Adverse Reactions: Allergies Allergy/AdvReac Type Severity Reaction Status Date / Time No Known Allergies Allergy Verified 01/09/18 09:27 Home Medications: Home Meds Metoprolol Tartrate [Lopressor] 25 mg PO BID 11/23/13 [History] Tamsulosin HCl 0.4 mg PO DAILY 11/23/13 [History] Tiotropium [Spiriva Handihaler] 18 mcg INH DAILY 11/23/13 [History] allopurinoL [Allopurinol] 100 mg PO DAILY 11/23/13 [History] atorvaSTATin [Lipitor] 40 mg PO DAILY 11/23/13 [History] lisinopriL [Prinivil] 5 mg PO DAILY 11/23/13 [History] Aspirin [Halfprin] 81 mg PO DAILY 09/10/14 [History] Gabapentin 600 mg PO BID 09/10/14 [History] metFORMIN [Glucophage XR] 1,000 mg PO BID 11/09/15 [History] Naproxen Sodium [Aleve] 220 mg PO PRN 07/17/20 [History] Past Medical History HEENT History: Reports: Hard of Hearing Cardiovascular History: Reports: Aneurysm, CAD, High Cholesterol, Hypertension Other Cardiovascular History: 4.2 cm noted Respiratory History: Reports: COPD, Sleep Apnea, Other (See Below) Other Respiratory History: lung nodules; Genitourinary History: Reports: BPH, Other (See Below) Other Genitourinary History: renal cell ca Musculoskeletal History: Reports: Back Pain, Chronic, Gout, Osteoarthritis, Other (See Below) (Both knees have been replaced totally.) Neurological History: Reports: None, Neuropathy, Diabetic Endocrine/Metabolic History: Reports: Diabetes, Type II (Controlled with diet and Metformin.) Other Endocrine/Metabolic History: on pills Oncologic (Cancer) History: Reports: Other (See Below) Other Oncologic History: 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 - Past Surgical History Musculoskeletal Surgical History: Reports: Knee Replacement, Other (See Below) (Previous cervical spine fusion he believes at C6-C7 level.) Social & Family History - Tobacco Use Tobacco Use Status *Q: Former Tobacco User Used Tobacco, but Quit: Yes Month/Year Tobacco Last Used: 15 - Caffeine Use Caffeine Use: Reports: Coffee, Soda, Tea - Recreational Drug Use Recreational Drug Use: No - Living Situation & Occupation Living situation: Reports: Occupation: Retired H&P Review of Systems - Review of Systems: Review Of Systems: Comprehensive ROS is negative, except as noted in HPI. Exam - Exam Exam: See Below - Vital Signs Vital Signs: Last Vital Signs Temp 97.6 F 07/17/20 14:20 Pulse 115 H 07/17/20 14:20 Resp 36 H 07/17/20 14:20 BP 100/68 07/17/20 14:20 Pulse Ox 88 L 07/17/20 15:50 Orthostatic Blood Pressure [ 102/78 Standing] Orthostatic Blood Pressure [ 122/76 Sitting] Orthostatic Blood Pressure [ 100/68 Supine] Weight: 270 lb - Exam Quality Assessment: Supplemental Oxygen General: Alert, Oriented HEENT: Conjunctiva Clear, Mucosa Moist & [place], Normal Nasal Septum. No: Hearing Intact Neck: Supple, Trachea Midline, 2 Lungs: Crackles (Throughout). No: Normal Respiratory Effort (Increased respiratory rate) Cardiovascular: Regular Rhythm, Tachycardia. No: Systolic Murmur GI/Abdominal Exam: Normal Bowel Sounds, Soft, Non-Tender, No Organomegaly, No Distention, No Abnormal Bruit Extremities: Normal Inspection, Normal Range of Motion, Non-Tender, No Pedal Edema, Normal Capillary Refill Peripheral Pulses: 1+: Posterior Tibial (L), Posterior Tibial (R), Dorsalis Pedis (L), Dorsalis Pedis (R) Skin: Warm, Dry, Intact, Rash, Petechia (Left lower leg has a large area on the medial posterior calf and ankle which is erythematous. It is not raised. It is well demarcated. There are several other smaller areas on the same leg.) Neuro Extensive - Mental Status: Alert, Oriented x3, Normal Mood/Affect, Normal Cognition Neuro Extensive - Motor, Sensory, Reflexes: CN II-XII Intact Psychiatric: Alert, Normal Affect, Normal Mood - Patient Data Lab Results Last 24 hrs: Laboratory Results - last 24 hr 07/17/20 07/17/20 07/17/20 Range/Units 15:05 15:05 15:05 WBC 15.19 H (4.23-9.07) K/mm3 RBC 5.22 (4.63-6.08) M/mm3 Hgb 15.2 (13.7-17.5) gm/dl Hct 45.1 (40.1-51.0) % MCV 86.4 (79.0-92.2) fl MCH 29.1 (25.7-32.2) pg MCHC 33.7 (32.2-35.5) g/dl RDW Std Deviation 43.3 (35.1-43.9) fL Plt Count 167 (163-337) K/mm3 MPV 9.7 (9.4-12.3) fl Neut % (Auto) 85.1 H (34.0-67.9) % Lymph % (Auto) 6.1 L (21.8-53.1) % [place] % (Auto) 8.4 (5.3-12.2) % Eos % (Auto) 0 L (0.8-7.0) Baso % (Auto) 0.1 (0.1-1.2) % Neut # (Auto) 12.95 H (1.78-5.38) K/mm3 Lymph # (Auto) 0.92 L (1.32-3.57) K/mm3 [place] # (Auto) 1.27 H (0.30-0.82) K/mm3 Eos # (Auto) 0.00 L (0.04-0.54) K/mm3 Baso # (Auto) 0.01 (0.01-0.08) K/mm3 Manual Slide Review Abnormal smear ESR (0-15) mm/hr PT 11.1 (9.7-12.0) SECONDS INR 1.04 APTT 25.2 (21.7-31.4) SECONDS Sodium 136 (136-145) mEq/L Potassium 4.1 (3.5-5.1) mEq/L Chloride 99 (98-107) mEq/L Carbon Dioxide 22 (21-32) mEq/L Anion Gap 19.1 H (5-15) BUN 25 H (7-18) mg/dL Creatinine 1.6 H (0.7-1.3) mg/dL Est Cr Clr Drug Dosing 43.70 mL/min Estimated GFR (MDRD) 42 (>60) mL/min BUN/Creatinine Ratio 15.6 (14-18) Glucose 270 H (83-115) mg/dL POC Glucose (83-110) mg/dL Hemoglobin A1c ( - 5.6) % Lactic Acid (0.4-2.0) mmol/L Calcium 9.8 (8.5-10.1) mg/dL Magnesium 1.8 (1.8-2.4) mg/dl Total Bilirubin 0.8 (0.2-1.0) mg/dL AST 36 (15-37) U/L ALT 39 (16-63) U/L Alkaline Phosphatase 69 (46-116) U/L Creatine Kinase (39-308) U/L CK-MB (CK-2) 9.0 H (0-3.6) ng/ml Troponin I 0.229 H* (0.00-0.056) ng/mL C-Reactive Protein 21.2 H* (<1.0) mg/dL NT-Pro-B Natriuret Pep (0-450) pg/mL Total Protein 7.7 (6.4-8.2) g/dl Albumin 3.6 (3.4-5.0) g/dl Globulin 4.1 gm/dL Albumin/Globulin Ratio 0.9 L (1-2) Urine Color (Yellow) Urine Appearance (Clear) Urine pH (5.0-8.0) Ur Specific [place] (1.005-1.030) Urine Protein (Negative) Urine Glucose (UA) (Negative) Urine Ketones (Negative) Urine Occult Blood (Negative) Urine Nitrite (Negative) Urine Bilirubin (Negative) Urine Urobilinogen (0.2-1.0) Ur Leukocyte Esterase (Negative) U Hyaline Cast (Auto) (0-5) /lpf Urine RBC (0-5) /hpf Urine WBC (0-5) /hpf Ur Epithelial Cells (0-5) /hpf Urine Bacteria (FEW) /hpf Urine Mucus (FEW) /hpf Urine Yeast (NOT SEEN) Ethyl Alcohol (0.00) gm% SARS-CoV-2 RNA (AMALIA) (NEGATIVE) 07/17/20 07/17/20 07/17/20 Range/Units 15:05 15:05 15:05 WBC (4.23-9.07) K/mm3 RBC (4.63-6.08) M/mm3 Hgb (13.7-17.5) gm/dl Hct (40.1-51.0) % MCV (79.0-92.2) fl MCH (25.7-32.2) pg MCHC (32.2-35.5) g/dl RDW Std Deviation (35.1-43.9) fL Plt Count (163-337) K/mm3 MPV (9.4-12.3) fl Neut % (Auto) (34.0-67.9) % Lymph % (Auto) (21.8-53.1) % [place] % (Auto) (5.3-12.2) % Eos % (Auto) (0.8-7.0) Baso % (Auto) (0.1-1.2) % Neut # (Auto) (1.78-5.38) K/mm3 Lymph # (Auto) (1.32-3.57) K/mm3 [place] # (Auto) (0.30-0.82) K/mm3 Eos # (Auto) (0.04-0.54) K/mm3 Baso # (Auto) (0.01-0.08) K/mm3 Manual Slide Review ESR 20 H (0-15) mm/hr PT (9.7-12.0) SECONDS INR APTT (21.7-31.4) SECONDS Sodium (136-145) mEq/L Potassium (3.5-5.1) mEq/L Chloride (98-107) mEq/L Carbon Dioxide (21-32) mEq/L Anion Gap (5-15) BUN (7-18) mg/dL Creatinine (0.7-1.3) mg/dL Est Cr Clr Drug Dosing mL/min Estimated GFR (MDRD) (>60) mL/min BUN/Creatinine Ratio (14-18) Glucose (83-115) mg/dL POC Glucose (83-110) mg/dL Hemoglobin A1c ( - 5.6) % Lactic Acid (0.4-2.0) mmol/L Calcium (8.5-10.1) mg/dL Magnesium (1.8-2.4) mg/dl Total Bilirubin (0.2-1.0) mg/dL AST (15-37) U/L ALT (16-63) U/L Alkaline Phosphatase (46-116) U/L Creatine Kinase 1245 H (39-308) U/L CK-MB (CK-2) (0-3.6) ng/ml Troponin I (0.00-0.056) ng/mL C-Reactive Protein (<1.0) mg/dL NT-Pro-B Natriuret Pep 1919 H (0-450) pg/mL Total Protein (6.4-8.2) g/dl Albumin (3.4-5.0) g/dl Globulin gm/dL Albumin/Globulin Ratio (1-2) Urine Color (Yellow) Urine Appearance (Clear) Urine pH (5.0-8.0) Ur Specific [place] (1.005-1.030) Urine Protein (Negative) Urine Glucose (UA) (Negative) Urine Ketones (Negative) Urine Occult Blood (Negative) Urine Nitrite (Negative) Urine Bilirubin (Negative) Urine Urobilinogen (0.2-1.0) Ur Leukocyte Esterase (Negative) U Hyaline Cast (Auto) (0-5) /lpf Urine RBC (0-5) /hpf Urine WBC (0-5) /hpf Ur Epithelial Cells (0-5) /hpf Urine Bacteria (FEW) /hpf Urine Mucus (FEW) /hpf Urine Yeast (NOT SEEN) Ethyl Alcohol 0.00 (0.00) gm% SARS-CoV-2 RNA (AMALIA) (NEGATIVE) 07/17/20 07/17/20 07/17/20 Range/Units 15:05 15:13 15:43 WBC (4.23-9.07) K/mm3 RBC (4.63-6.08) M/mm3 Hgb (13.7-17.5) gm/dl Hct (40.1-51.0) % MCV (79.0-92.2) fl MCH (25.7-32.2) pg MCHC (32.2-35.5) g/dl RDW Std Deviation (35.1-43.9) fL Plt Count (163-337) K/mm3 MPV (9.4-12.3) fl Neut % (Auto) (34.0-67.9) % Lymph % (Auto) (21.8-53.1) % [place] % (Auto) (5.3-12.2) % Eos % (Auto) (0.8-7.0) Baso % (Auto) (0.1-1.2) % Neut # (Auto) (1.78-5.38) K/mm3 Lymph # (Auto) (1.32-3.57) K/mm3 [place] # (Auto) (0.30-0.82) K/mm3 Eos # (Auto) (0.04-0.54) K/mm3 Baso # (Auto) (0.01-0.08) K/mm3 Manual Slide Review ESR (0-15) mm/hr PT (9.7-12.0) SECONDS INR APTT (21.7-31.4) SECONDS Sodium (136-145) mEq/L Potassium (3.5-5.1) mEq/L Chloride (98-107) mEq/L Carbon Dioxide (21-32) mEq/L Anion Gap (5-15) BUN (7-18) mg/dL Creatinine (0.7-1.3) mg/dL Est Cr Clr Drug Dosing mL/min Estimated GFR (MDRD) (>60) mL/min BUN/Creatinine Ratio (14-18) Glucose (83-115) mg/dL POC Glucose (83-110) mg/dL Hemoglobin A1c 8.1 H ( - 5.6) % Lactic Acid 3.1 H* (0.4-2.0) mmol/L Calcium (8.5-10.1) mg/dL Magnesium (1.8-2.4) mg/dl Total Bilirubin (0.2-1.0) mg/dL AST (15-37) U/L ALT (16-63) U/L Alkaline Phosphatase (46-116) U/L Creatine Kinase (39-308) U/L CK-MB (CK-2) (0-3.6) ng/ml Troponin I (0.00-0.056) ng/mL C-Reactive Protein (<1.0) mg/dL NT-Pro-B Natriuret Pep (0-450) pg/mL Total Protein (6.4-8.2) g/dl Albumin (3.4-5.0) g/dl Globulin gm/dL Albumin/Globulin Ratio (1-2) Urine Color (Yellow) Urine Appearance (Clear) Urine pH (5.0-8.0) Ur Specific [place] (1.005-1.030) Urine Protein (Negative) Urine Glucose (UA) (Negative) Urine Ketones (Negative) Urine Occult Blood (Negative) Urine Nitrite (Negative) Urine Bilirubin (Negative) Urine Urobilinogen (0.2-1.0) Ur Leukocyte Esterase (Negative) U Hyaline Cast (Auto) (0-5) /lpf Urine RBC (0-5) /hpf Urine WBC (0-5) /hpf Ur Epithelial Cells (0-5) /hpf Urine Bacteria (FEW) /hpf Urine Mucus (FEW) /hpf Urine Yeast (NOT SEEN) Ethyl Alcohol (0.00) gm% SARS-CoV-2 RNA (AMALIA) Negative (NEGATIVE) 07/17/20 07/17/20 07/17/20 Range/Units 15:45 16:45 19:55 WBC (4.23-9.07) K/mm3 RBC (4.63-6.08) M/mm3 Hgb (13.7-17.5) gm/dl Hct (40.1-51.0) % MCV (79.0-92.2) fl MCH (25.7-32.2) pg MCHC (32.2-35.5) g/dl RDW Std Deviation (35.1-43.9) fL Plt Count (163-337) K/mm3 MPV (9.4-12.3) fl Neut % (Auto) (34.0-67.9) % Lymph % (Auto) (21.8-53.1) % [place] % (Auto) (5.3-12.2) % Eos % (Auto) (0.8-7.0) Baso % (Auto) (0.1-1.2) % Neut # (Auto) (1.78-5.38) K/mm3 Lymph # (Auto) (1.32-3.57) K/mm3 [place] # (Auto) (0.30-0.82) K/mm3 Eos # (Auto) (0.04-0.54) K/mm3 Baso # (Auto) (0.01-0.08) K/mm3 Manual Slide Review ESR (0-15) mm/hr PT (9.7-12.0) SECONDS INR APTT (21.7-31.4) SECONDS Sodium (136-145) mEq/L Potassium (3.5-5.1) mEq/L Chloride (98-107) mEq/L Carbon Dioxide (21-32) mEq/L Anion Gap (5-15) BUN (7-18) mg/dL Creatinine (0.7-1.3) mg/dL Est Cr Clr Drug Dosing mL/min Estimated GFR (MDRD) (>60) mL/min BUN/Creatinine Ratio (14-18) Glucose (83-115) mg/dL POC Glucose 262 H (83-110) mg/dL Hemoglobin A1c ( - 5.6) % Lactic Acid 1.6 (0.4-2.0) mmol/L Calcium (8.5-10.1) mg/dL Magnesium (1.8-2.4) mg/dl Total Bilirubin (0.2-1.0) mg/dL AST (15-37) U/L ALT (16-63) U/L Alkaline Phosphatase (46-116) U/L Creatine Kinase (39-308) U/L CK-MB (CK-2) (0-3.6) ng/ml Troponin I (0.00-0.056) ng/mL C-Reactive Protein (<1.0) mg/dL NT-Pro-B Natriuret Pep (0-450) pg/mL Total Protein (6.4-8.2) g/dl Albumin (3.4-5.0) g/dl Globulin gm/dL Albumin/Globulin Ratio (1-2) Urine Color Yellow (Yellow) Urine Appearance Clear (Clear) Urine pH 5.5 (5.0-8.0) Ur Specific [place] > or = 1.030 (1.005-1.030) Urine Protein 3+ H (Negative) Urine Glucose (UA) 2+ H (Negative) Urine Ketones Trace H (Negative) Urine Occult Blood 3+ H (Negative) Urine Nitrite Negative (Negative) Urine Bilirubin Negative (Negative) Urine Urobilinogen 0.2 (0.2-1.0) Ur Leukocyte Esterase Negative (Negative) U Hyaline Cast (Auto) 10-20 H (0-5) /lpf Urine RBC 0-5 (0-5) /hpf Urine WBC 0-5 (0-5) /hpf Ur Epithelial Cells 0-5 (0-5) /hpf Urine Bacteria Moderate H (FEW) /hpf Urine Mucus Few (FEW) /hpf Urine Yeast Rare (NOT SEEN) Ethyl Alcohol (0.00) gm% SARS-CoV-2 RNA (AMALIA) (NEGATIVE) 07/17/20 Range/Units 19:55 WBC (4.23-9.07) K/mm3 RBC (4.63-6.08) M/mm3 Hgb (13.7-17.5) gm/dl Hct (40.1-51.0) % MCV (79.0-92.2) fl MCH (25.7-32.2) pg MCHC (32.2-35.5) g/dl RDW Std Deviation (35.1-43.9) fL Plt Count (163-337) K/mm3 MPV (9.4-12.3) fl Neut % (Auto) (34.0-67.9) % Lymph % (Auto) (21.8-53.1) % [place] % (Auto) (5.3-12.2) % Eos % (Auto) (0.8-7.0) Baso % (Auto) (0.1-1.2) % Neut # (Auto) (1.78-5.38) K/mm3 Lymph # (Auto) (1.32-3.57) K/mm3 [place] # (Auto) (0.30-0.82) K/mm3 Eos # (Auto) (0.04-0.54) K/mm3 Baso # (Auto) (0.01-0.08) K/mm3 Manual Slide Review ESR (0-15) mm/hr PT (9.7-12.0) SECONDS INR APTT (21.7-31.4) SECONDS Sodium (136-145) mEq/L Potassium (3.5-5.1) mEq/L Chloride (98-107) mEq/L Carbon Dioxide (21-32) mEq/L Anion Gap (5-15) BUN (7-18) mg/dL Creatinine (0.7-1.3) mg/dL Est Cr Clr Drug Dosing mL/min Estimated GFR (MDRD) (>60) mL/min BUN/Creatinine Ratio (14-18) Glucose (83-115) mg/dL POC Glucose (83-110) mg/dL Hemoglobin A1c ( - 5.6) % Lactic Acid (0.4-2.0) mmol/L Calcium (8.5-10.1) mg/dL Magnesium (1.8-2.4) mg/dl Total Bilirubin (0.2-1.0) mg/dL AST (15-37) U/L ALT (16-63) U/L Alkaline Phosphatase (46-116) U/L Creatine Kinase (39-308) U/L CK-MB (CK-2) (0-3.6) ng/ml Troponin I 0.172 H* (0.00-0.056) ng/mL C-Reactive Protein (<1.0) mg/dL NT-Pro-B Natriuret Pep (0-450) pg/mL Total Protein (6.4-8.2) g/dl Albumin (3.4-5.0) g/dl Globulin gm/dL Albumin/Globulin Ratio (1-2) Urine Color (Yellow) Urine Appearance (Clear) Urine pH (5.0-8.0) Ur Specific [place] (1.005-1.030) Urine Protein (Negative) Urine Glucose (UA) (Negative) Urine Ketones (Negative) Urine Occult Blood (Negative) Urine Nitrite (Negative) Urine Bilirubin (Negative) Urine Urobilinogen (0.2-1.0) Ur Leukocyte Esterase (Negative) U Hyaline Cast (Auto) (0-5) /lpf Urine RBC (0-5) /hpf Urine WBC (0-5) /hpf Ur Epithelial Cells (0-5) /hpf Urine Bacteria (FEW) /hpf Urine Mucus (FEW) /hpf Urine Yeast (NOT SEEN) Ethyl Alcohol (0.00) gm% SARS-CoV-2 RNA (AMALIA) (NEGATIVE) Result Diagrams: 07/18/20 06:07 07/18/20 06:07 #1 Interpretation EKG Date: 07/17/20 Rhythm: Other (Sinus tachycardia) Rate (Beats/Min): 113 [place]: LAD-Left [place] Deviation P-Wave: Present (First-degree AV block) QRS: Normal (Q waves in leads II, III and aVF consistent with prior inferior wall infarction) QT: Prolonged Sepsis Event Note - Evaluation Sepsis Screening Result: Severe Sepsis Risk - Focused Exam Vital Signs: Vital Signs Temp Pulse Resp BP Pulse Ox Pulse Ox 07/17/20 15:50 88 L 07/17/20 14:20 97.6 F 115 H 36 H 100/68 91 L - Problem List (1) Severe sepsis SNOMED Code(s): 15700406 ICD Code: A41.9 - SEPSIS, UNSPECIFIED ORGANISM; R65.20 - SEVERE SEPSIS WITHOUT SEPTIC SHOCK Status: Acute Current Visit: Yes (2) CHF (congestive heart failure), NYHA class III SNOMED Code(s): 489595495, 224016521 ICD Code: I50.9 - HEART FAILURE, UNSPECIFIED Status: Acute Current Visit: Yes Qualifiers: Congestive heart failure type: diastolic Congestive heart failure chronicity: acute on chronic Qualified Code(s): I50.33 - Acute on chronic diastolic (congestive) heart failure (3) Diabetes mellitus SNOMED Code(s): 34736509 ICD Code: E11.9 - TYPE 2 DIABETES MELLITUS WITHOUT COMPLICATIONS Status: Acute Current Visit: Yes Qualifiers: Chronic kidney disease stage: stage 3 (moderate) (4) Generalized weakness SNOMED Code(s): 92450141 ICD Code: R53.1 - WEAKNESS Status: Acute Current Visit: Yes Problem List Initiated/Reviewed/Updated: Yes Orders Last 24hrs: Active Orders 24 hr Category Date Time Status Admission Status [Patient Status] [ADT] Routine ADT 07/17/20 18:23 Active Blood Glucose Check, Bedside [RC] ONETIME Care 07/17/20 15:14 Active EKG Documentation Completion [RC] STAT Care 07/17/20 14:36 Active EKG Documentation Completion [RC] STAT Care 07/17/20 14:39 Active Oxygen Therapy [RC] ASDIRECTED Care 07/17/20 14:36 Active Chest 1V Frontal [CR] Stat Exams 07/17/20 14:36 Taken CULTURE BLOOD [BC] Stat Lab 07/17/20 15:05 Received CULTURE BLOOD [BC] Stat Lab 07/17/20 15:15 Received PROCALCITONIN [REF] Stat Lab 07/17/20 15:05 Received URIC ACID, URINE Stat Lab 07/17/20 16:45 Received Blood Culture x2 Reflex Set [OM.PC] Stat Oth 07/17/20 14:37 Ordered Assessment/Plan Comment:: Assessment 75-year-old male with significantly erythematous and warm rash on the left lower extremity and the patient has had history of cellulitis in the past presents in severe sepsis and lactic acidosis. Severe sepsis Left lower extremity cellulitis * Given fluid bolus and started on Rocephin and vancomycin * White count 15.2 with left shift, C-reactive protein 21.2 * Lactic acid 3.1 with repeat less than 2 after fluid bolus Rhabdomyolysis Patient was on the ground for unknown length of time. 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 * Crackles in the lungs likely secondary to sepsis BPH * Patient having difficulty urinating * On exam the prostate was enlarged but only minimally tender making prostatitis less likely Plan * Admit to floor * Continue vancomycin and Rocephin * IV fluids 35 mL an hour and continue monitoring for rhabdo * Sliding scale insulin and fingerstick blood sugar 4 times daily * Recheck creatinine kinase in the morning. * CBC, CMP, C-reactive protein, magnesium in the morning * Procalcitonin pending * Blood cultures pending * Albuterol and DuoNeb as needed * Urinary retention protocol. Patient has been given fluid bolus which may be causing some urinary retention. Patient had to have a straight cath when he got to the floor. Consider Nix if this continues. * Spoke with daughter Stephanie and several family members on the phone. 1 daughter is a nurse in [place] and her granddaughter is a nurse practitioner. They had several questions which I tried to answer fully. * VTE prophylaxis with Lovenox * CODE STATUS: Full code * Length of stay likely 3 to 4 days. - Mortality Measure Prognosis:: Poor
[2020-07-17] MEDS ORDERED: Acetaminophen 325 MG Tab PO PRN (21:57)
[2020-07-17] MEDS ORDERED: Albuterol 0.083% 2.5 MG/3 ML Neb Soln NEB PRN (21:57)
[2020-07-17] MEDS ORDERED: Ondansetron 4 MG/2 ML SDV IV PRN (21:57)
[2020-07-17] MEDS ORDERED: Albuterol/Ipratropium 3.0-0.5 MG/3 ML Neb Soln NEB PRN (21:57)
[2020-07-17] MEDS ORDERED: Gabapentin 300 MG Cap PO SCH (23:30)
[2020-07-18 07:09] LABS: HEMOGLOBIN A1C 7.7 %
[2020-07-18] MEDS: Allopurinol 100 MG Tab PO SCH (08:30)
[2020-07-18] MEDS: Rosuvastatin 10 MG Tab PO SCH (08:30)
[2020-07-18] MEDS: Aspirin 81 MG Tab.EC PO SCH (08:30)
[2020-07-18] MEDS: Gabapentin 600 MG Tab PO SCH ×2 (08:30→20:37)
[2020-07-18] MEDS: Tamsulosin 0.4 MG Cap.ER PO SCH (08:30)
[2020-07-18] MEDS: Enoxaparin 40 MG/0.4 ML Syringe SUBCUT SCH (08:31)
--- NOTE | 2020-07-18 08:49 | CR ---
Chest: Portable view of the chest was obtained. Comparison: Prior chest x-ray of 11/09/15. Nodule is seen within the right mid to lower lung measuring approximately 1.0 cm. This is not identified on prior study. Slight scarring is noted within the left lung base. Lungs otherwise are clear. Heart size and mediastinum are normal. Prior cervical spine surgery is noted. Previous sternotomy is noted. Impression: 1. 1 cm nodule within the right chest. Noncontrast chest CT is recommended to further evaluate. 2. Other findings as noted above. Nothing acute is otherwise appreciated. Diagnostic code #9
[2020-07-18] MEDS ORDERED: Non-Formulary Medication 1 Each (Atorvastatin 40 MG) PO SCH (09:00)
[2020-07-18] MEDS: Metoprolol Tartrate 25 MG Tab PO SCH ×2 (09:01→20:37)
[2020-07-18] MEDS ORDERED: Sodium Chloride 0.9% 1,000 ML IV SCH (09:15)
[2020-07-18] MEDS: Insulin Glarg,Human.Rec.Analog 100 Unit/ML SUBCUT SCH (10:40)
--- NOTE | 2020-07-18 17:47 | PCM.PN ---
- General Info Date of Service: 07/18/20 Admission Dx/Problem (Free Text): Admission Diagnosis/Problem Admission Diagnosis/Problem Fall as cause of accidental injury in home as place of occurrence Subjective Update: She is doing much better. He is short of breath at his baseline level secondary to his COPD. Appetite is improved. He is much more alert today. Daughter has been with him. Functional Status: Reports: Pain Controlled - Review of Systems General: Reports: Night Sweats HEENT: Reports: No Symptoms Pulmonary: Reports: Shortness of Breath Cardiovascular: Reports: No Symptoms Gastrointestinal: Reports: No Symptoms Musculoskeletal: Reports: No Symptoms - Patient Data Vitals - Most Recent: Last Vital Signs Temp 97.9 F 07/18/20 16:07 Pulse 89 07/18/20 16:07 Resp 16 07/18/20 16:07 BP 125/71 07/18/20 16:07 Pulse Ox 96 07/18/20 16:07 Orthostatic Blood Pressure [ 102/78 Standing] Orthostatic Blood Pressure [ 122/76 Sitting] Orthostatic Blood Pressure [ 100/68 Supine] Weight - Most Recent: 262 lb 4.8 oz I&O - Last 24 Hours: Intake & Output 07/18/20 07/18/20 07/18/20 06:59 14:59 22:59 Intake Total 144 503 2948 Output Total 200 0 Balance 971 743 1855 Imaging Impressions - Last 24 Hours: Chest x-ray from yesterday was read by Dr. Garcia as having a nodule the right upper lobe which would benefit from noncontrast CT Lab Results Last 24 Hours: Laboratory Results - last 24 hr 07/17/20 07/17/20 07/18/20 Range/Units 19:55 19:55 05:51 WBC (4.23-9.07) K/mm3 RBC (4.63-6.08) M/mm3 Hgb (13.7-17.5) gm/dl Hct (40.1-51.0) % MCV (79.0-92.2) fl MCH (25.7-32.2) pg MCHC (32.2-35.5) g/dl RDW Std Deviation (35.1-43.9) fL Plt Count (163-337) K/mm3 MPV (9.4-12.3) fl Neut % (Auto) (34.0-67.9) % Lymph % (Auto) (21.8-53.1) % [place] % (Auto) (5.3-12.2) % Eos % (Auto) (0.8-7.0) Baso % (Auto) (0.1-1.2) % Neut # (Auto) (1.78-5.38) K/mm3 Lymph # (Auto) (1.32-3.57) K/mm3 [place] # (Auto) (0.30-0.82) K/mm3 Eos # (Auto) (0.04-0.54) K/mm3 Baso # (Auto) (0.01-0.08) K/mm3 Manual Slide Review Sodium (136-145) mEq/L Potassium (3.5-5.1) mEq/L Chloride (98-107) mEq/L Carbon Dioxide (21-32) mEq/L Anion Gap (5-15) BUN (7-18) mg/dL Creatinine (0.7-1.3) mg/dL Est Cr Clr Drug Dosing mL/min Estimated GFR (MDRD) (>60) mL/min BUN/Creatinine Ratio (14-18) Glucose (83-115) mg/dL POC Glucose 222 H (83-110) mg/dL Hemoglobin A1c ( - 5.6) % Lactic Acid 1.6 (0.4-2.0) mmol/L Calcium (8.5-10.1) mg/dL Phosphorus (2.6-4.7) mg/dL Magnesium (1.8-2.4) mg/dl Total Bilirubin (0.2-1.0) mg/dL AST (15-37) U/L ALT (16-63) U/L Alkaline Phosphatase (46-116) U/L Creatine Kinase (39-308) U/L Troponin I 0.172 H* (0.00-0.056) ng/mL C-Reactive Protein (<1.0) mg/dL Total Protein (6.4-8.2) g/dl Albumin (3.4-5.0) g/dl Globulin gm/dL Albumin/Globulin Ratio (1-2) 07/18/20 07/18/20 07/18/20 Range/Units 06:07 06:07 06:07 WBC 11.07 H (4.23-9.07) K/mm3 RBC 4.65 (4.63-6.08) M/mm3 Hgb 13.4 L D (13.7-17.5) gm/dl Hct 41.1 (40.1-51.0) % MCV 88.4 (79.0-92.2) fl MCH 28.8 (25.7-32.2) pg MCHC 32.6 (32.2-35.5) g/dl RDW Std Deviation 44.9 H (35.1-43.9) fL Plt Count 150 L (163-337) K/mm3 MPV 9.8 (9.4-12.3) fl Neut % (Auto) 79.6 H (34.0-67.9) % Lymph % (Auto) 9.8 L (21.8-53.1) % [place] % (Auto) 9.9 (5.3-12.2) % Eos % (Auto) 0.3 L (0.8-7.0) Baso % (Auto) 0.1 (0.1-1.2) % Neut # (Auto) 8.81 H (1.78-5.38) K/mm3 Lymph # (Auto) 1.09 L (1.32-3.57) K/mm3 [place] # (Auto) 1.10 H (0.30-0.82) K/mm3 Eos # (Auto) 0.03 L (0.04-0.54) K/mm3 Baso # (Auto) 0.01 (0.01-0.08) K/mm3 Manual Slide Review Abnormal smear Sodium 138 (136-145) mEq/L Potassium 3.9 (3.5-5.1) mEq/L Chloride 102 (98-107) mEq/L Carbon Dioxide 24 (21-32) mEq/L Anion Gap 15.9 H (5-15) BUN 31 H (7-18) mg/dL Creatinine 1.5 H (0.7-1.3) mg/dL Est Cr Clr Drug Dosing 47.95 mL/min Estimated GFR (MDRD) 45 (>60) mL/min BUN/Creatinine Ratio 20.7 H (14-18) Glucose 219 H (83-115) mg/dL POC Glucose (83-110) mg/dL Hemoglobin A1c 7.7 H ( - 5.6) % Lactic Acid (0.4-2.0) mmol/L Calcium 8.8 (8.5-10.1) mg/dL Phosphorus 2.8 (2.6-4.7) mg/dL Magnesium 2.0 (1.8-2.4) mg/dl Total Bilirubin 0.7 (0.2-1.0) mg/dL AST 33 (15-37) U/L ALT 32 (16-63) U/L Alkaline Phosphatase 57 (46-116) U/L Creatine Kinase 609 H (39-308) U/L Troponin I (0.00-0.056) ng/mL C-Reactive Protein 14.2 H* (<1.0) mg/dL Total Protein 6.5 (6.4-8.2) g/dl Albumin 2.9 L (3.4-5.0) g/dl Globulin 3.6 gm/dL Albumin/Globulin Ratio 0.8 L (1-2) 07/18/20 07/18/20 Range/Units 12:04 17:17 WBC (4.23-9.07) K/mm3 RBC (4.63-6.08) M/mm3 Hgb (13.7-17.5) gm/dl Hct (40.1-51.0) % MCV (79.0-92.2) fl MCH (25.7-32.2) pg MCHC (32.2-35.5) g/dl RDW Std Deviation (35.1-43.9) fL Plt Count (163-337) K/mm3 MPV (9.4-12.3) fl Neut % (Auto) (34.0-67.9) % Lymph % (Auto) (21.8-53.1) % [place] % (Auto) (5.3-12.2) % Eos % (Auto) (0.8-7.0) Baso % (Auto) (0.1-1.2) % Neut # (Auto) (1.78-5.38) K/mm3 Lymph # (Auto) (1.32-3.57) K/mm3 [place] # (Auto) (0.30-0.82) K/mm3 Eos # (Auto) (0.04-0.54) K/mm3 Baso # (Auto) (0.01-0.08) K/mm3 Manual Slide Review Sodium (136-145) mEq/L Potassium (3.5-5.1) mEq/L Chloride (98-107) mEq/L Carbon Dioxide (21-32) mEq/L Anion Gap (5-15) BUN (7-18) mg/dL Creatinine (0.7-1.3) mg/dL Est Cr Clr Drug Dosing mL/min Estimated GFR (MDRD) (>60) mL/min BUN/Creatinine Ratio (14-18) Glucose (83-115) mg/dL POC Glucose 245 H 223 H (83-110) mg/dL Hemoglobin A1c ( - 5.6) % Lactic Acid (0.4-2.0) mmol/L Calcium (8.5-10.1) mg/dL Phosphorus (2.6-4.7) mg/dL Magnesium (1.8-2.4) mg/dl Total Bilirubin (0.2-1.0) mg/dL AST (15-37) U/L ALT (16-63) U/L Alkaline Phosphatase (46-116) U/L Creatine Kinase (39-308) U/L Troponin I (0.00-0.056) ng/mL C-Reactive Protein (<1.0) mg/dL Total Protein (6.4-8.2) g/dl Albumin (3.4-5.0) g/dl Globulin gm/dL Albumin/Globulin Ratio (1-2) David Results Last 24 Hours: Microbiology 07/17/20 15:15 Aerobic Blood Culture - Preliminary Blood - Venous - Lab Draw NO GROWTH AFTER 1 DAY Anaerobic Blood Culture - Preliminary NO GROWTH AFTER 1 DAY 07/17/20 15:05 Aerobic Blood Culture - Preliminary Blood - Venous NO GROWTH AFTER 1 DAY Anaerobic Blood Culture - Preliminary NO GROWTH AFTER 1 DAY Med Orders - Current: Current Medications Acetaminophen (Tylenol) 650 mg PO Q4H PRN PRN Reason: Pain (Mild 1-3)/fever Last Admin: 07/18/20 04:45 Dose: 650 mg Documented by: Albuterol (Proventil Neb Soln) 2.5 mg NEB Q2H PRN PRN Reason: Shortness Of Breath/wheezing Albuterol/Ipratropium (Duoneb 3.0-0.5 Mg/3 Ml) 3 ml NEB Q4H PRN PRN Reason: Shortness Of Breath/wheezing Allopurinol (Zyloprim) 100 mg PO DAILY [facility] Last Admin: 07/18/20 08:30 Dose: 100 mg Documented by: Aspirin (Halfprin) 81 mg PO DAILY [facility] Last Admin: 07/18/20 08:30 Dose: 81 mg Documented by: Enoxaparin Sodium (Lovenox) 40 mg SUBCUT DAILY [facility] Last Admin: 07/18/20 08:31 Dose: 40 mg Documented by: Gabapentin (Neurontin) 600 mg PO BID [facility] Last Admin: 07/18/20 08:30 Dose: 600 mg Documented by: Ceftriaxone Sodium 2 gm/ (Sodium Chloride) 100 mls @ 200 mls/hr IV Q24H [facility] Vancomycin HCl 1.75 gm/ Sodium (Chloride) 500 mls @ 250 mls/hr IV Q24H [facility] Sodium Chloride (Normal Saline) 1,000 mls @ 100 mls/hr IV ASDIRECTED [facility] Stop: 07/18/20 19:14 Last Admin: 07/18/20 10:10 Dose: 100 mls/hr Documented by: Insulin Glargine (Lantus) 10 unit SUBCUT DAILY [facility] Last Admin: 07/18/20 10:40 Dose: 10 units Documented by: Insulin Human Lispro (Humalog) 0 unit SUBCUT QIDACANDBED [facility]; Protocol Last Admin: 07/18/20 12:18 Dose: 2 unit Documented by: Metoprolol Tartrate (Lopressor) 25 mg PO BID [facility] Last Admin: 07/18/20 09:01 Dose: 12.5 mg Documented by: Ondansetron HCl (Zofran) 4 mg IV Q4H PRN PRN Reason: Nausea/Vomiting Rosuvastatin Calcium (Crestor) 10 mg PO DAILY [facility] Last Admin: 07/18/20 08:30 Dose: 10 mg Documented by: Tamsulosin HCl (Flomax) 0.4 mg PO DAILY [facility] Last Admin: 07/18/20 08:30 Dose: 0.4 mg Documented by: Vancomycin HCl (Pharmacy To Dose - Vancomycin) 1 dose .XX ASDIRECTED PRN PRN Reason: RX TO DOSE VANCO Discontinued Medications Acetaminophen (Tylenol) 975 mg PO ONETIME ONE Stop: 07/17/20 16:34 Last Admin: 07/17/20 16:59 Dose: 975 mg Documented by: Gabapentin (Neurontin) 600 mg PO BID [facility] Last Admin: 07/18/20 01:51 Dose: Not Given Documented by: Dextrose/Sodium Chloride (Dextrose 5%-Normal Saline) 1,000 mls @ 125 mls/hr IV ASDIRECTED [facility] Sodium Chloride (Normal Saline) Confirm Administered Dose 1,000 mls @ as directed .ROUTE .STK-MED ONE Stop: 07/17/20 15:48 Last Admin: 07/17/20 15:52 Dose: Not Given Documented by: Sodium Chloride (Normal Saline) 500 mls @ 999 mls/hr IV .BOLUS ONE Stop: 07/17/20 16:17 Last Admin: 07/17/20 15:50 Dose: 999 mls/hr Documented by: Sodium Chloride (Normal Saline) 1,000 mls @ 999 mls/hr IV ONETIME ONE Stop: 07/17/20 17:35 Last Admin: 07/17/20 17:35 Dose: 999 mls/hr Documented by: Ceftriaxone Sodium 2 gm/ (Sodium Chloride) 100 mls @ 200 mls/hr IV ONETIME ONE Stop: 07/17/20 17:19 Last Admin: 07/17/20 17:01 Dose: 200 mls/hr Documented by: Sodium Chloride (Normal Saline) Confirm Administered Dose 250 mls @ as directed .ROUTE .STK-MED ONE Stop: 07/17/20 19:38 Last Admin: 07/18/20 01:52 Dose: Not Given Documented by: Vancomycin HCl 2 gm/ Sodium (Chloride) 500 mls @ 250 mls/hr IV ONETIME ONE Stop: 07/17/20 23:29 Last Admin: 07/17/20 21:47 Dose: 250 mls/hr Documented by: - Exam Quality Assessment: Supplemental Oxygen General: Alert, Oriented HEENT: Pupils Equal, Mucous Membr. Moist/[place] Neck: Supple Lungs: Normal Respiratory Effort, Crackles Cardiovascular: Regular Rate, Regular Rhythm GI/Abdominal Exam: Normal Bowel Sounds, Soft, Non-Tender, No Distention Extremities: Normal Inspection, Normal Range of Motion, No Pedal Edema, Normal Capillary Refill, Redness (Left leg increased to the inner thigh) Sepsis Event Note - Evaluation Sepsis Screening Result: No Definite Risk - Focused Exam Vital Signs: Vital Signs Temp Pulse Resp BP Pulse Ox 07/18/20 16:07 97.9 F 89 16 125/71 96 07/18/20 12:34 98.1 F 92 20 115/72 96 07/18/20 09:01 98 107/56 L 07/18/20 08:31 97.7 F 98 16 107/56 L 92 L - Problem List & Annotations (1) Severe sepsis SNOMED Code(s): 51574522 Code(s): A41.9 - SEPSIS, UNSPECIFIED ORGANISM; R65.20 - SEVERE SEPSIS WITHOUT SEPTIC SHOCK Status: Acute Current Visit: Yes (2) CHF (congestive heart failure), NYHA class III SNOMED Code(s): 290473913, 780925023 Code(s): I50.9 - HEART FAILURE, UNSPECIFIED Status: Acute Current Visit: Yes Qualifiers: Congestive heart failure type: diastolic Congestive heart failure chronicity: acute on chronic Qualified Code(s): I50.33 - Acute on chronic diastolic (congestive) heart failure (3) Diabetes mellitus SNOMED Code(s): 88772079 Code(s): E11.9 - TYPE 2 DIABETES MELLITUS WITHOUT COMPLICATIONS Status: Acute Current Visit: Yes Qualifiers: Chronic kidney disease stage: stage 3 (moderate) (4) Generalized weakness SNOMED Code(s): 74718330 Code(s): R53.1 - WEAKNESS Status: Acute Current Visit: Yes (5) Lung nodules SNOMED Code(s): 585339952 Code(s): R91.8 - OTHER NONSPECIFIC ABNORMAL FINDING OF LUNG FIELD Status: Acute Current Visit: Yes (6) Acute renal insufficiency SNOMED Code(s): 859442441 Code(s): N28.9 - DISORDER OF KIDNEY AND URETER, UNSPECIFIED Status: Acute Current Visit: Yes - Problem List Review Problem List Initiated/Reviewed/Updated: Yes - My Orders Last 24 Hours: My Active Orders 07/17/20 21:57 Oxygen Therapy [RC] PRN Up With Assistance [RC] BID VTE/DVT Education [RC] DAILY Vital Signs [RC] Q4HR OT Evaluation and Treatment [CONS] Routine PT Evaluation and Treatment [CONS] Routine Acetaminophen [TylenoL] 650 mg PO Q4H PRN Albuterol [Proventil Neb Soln] 2.5 mg NEB Q2H PRN Albuterol/Ipratropium [DuoNeb 3.0-0.5 MG/3 ML] 3 ml NEB Q4H PRN Ondansetron [Zofran] 4 mg IV Q4H PRN Resuscitation Status Routine 07/17/20 21:59 RT Aerosol Therapy [RC] ASDIRECTED 07/17/20 22:15 Blood Glucose Check, Bedside [RC] WITHMEALSANDBED Pharmacy to Dose - Vancomycin 1 dose .XX ASDIRECTED PRN 07/18/20 Breakfast 2 Gram Sodium Diet [DIET] Insulin Lispro [HumaLOG] See Protocol SUBCUT QIDACANDBED 07/18/20 09:00 Aspirin [Halfprin] 81 mg PO DAILY Enoxaparin [Lovenox] 40 mg SUBCUT DAILY Gabapentin [Neurontin] 600 mg PO BID Metoprolol Tartrate [Lopressor] 25 mg PO BID Rosuvastatin [Crestor] 10 mg PO DAILY Tamsulosin [Flomax] 0.4 mg PO DAILY allopurinoL [Zyloprim] 100 mg PO DAILY 07/18/20 09:15 Insulin Glarg,Human.Rec.Analog [LantUS] 10 unit SUBCUT DAILY Sodium Chloride 0.9% [Normal Saline] 1,000 ml IV ASDIRECTED 07/18/20 Lunch ADA Diabetic [[employer]abetic [employer] Diet] [DIET] 07/18/20 17:00 cefTRIAXone [Rocephin] 2 gm Sodium Chloride 0.9% [Normal Saline] 100 ml IV Q24H 07/18/20 21:00 Vancomycin 1.75 gm Sodium Chloride 0.9% [Normal Saline] 500 ml IV Q24H 07/19/20 20:00 VANCOMYCIN TROUGH [CHEM] Timed - Plan Plan:: Assessment 07/17/2020 75-year-old male with significantly erythematous and warm rash on the left lower extremity and the patient has had history of cellulitis in the past presents in severe sepsis and lactic acidosis. Severe sepsis Left lower extremity cellulitis * Given fluid bolus and started on Rocephin and vancomycin * White count 15.2 with left shift, C-reactive protein 21.2 * Lactic acid 3.1 with repeat less than 2 after fluid bolus Rhabdomyolysis Patient was on the ground for unknown length of time. 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 * Crackles in the lungs likely secondary to sepsis BPH * Patient having difficulty urinating * On exam the prostate was enlarged but only minimally tender making prostatitis less likely Plan * Admit to floor * Continue vancomycin and Rocephin * IV fluids 75 mL an hour and continue monitoring for rhabdo * Sliding scale insulin and fingerstick blood sugar 4 times daily * Recheck creatinine kinase in the morning. * CBC, CMP, C-reactive protein, magnesium in the morning * Procalcitonin pending * Blood cultures pending * Albuterol and DuoNeb as needed * Urinary retention protocol. Patient has been given fluid bolus which may be causing some urinary retention. Patient had to have a straight cath when he got to the floor. Consider Nix if this continues. * Spoke with daughter Stephanie and several family members on the phone. 1 daughter is a nurse in [place] and her granddaughter is a nurse practitioner. They had several questions which I tried to answer fully. * VTE prophylaxis with Lovenox * CODE STATUS: Full code * Length of stay likely 3 to 4 days. 07/18/2021 Patient has had a significant improvement overnight. His lactic acid is normal, his white count has decreased to 11, C-reactive protein is decreased to 14.2, and his renal function has improved slightly with a creatinine of 1.5 from 1.6. Anion gap is down to 15.9. CPK is also improved down to 609. Blood sugars continue to be in the 200s which is poorly controlled. He continues to be without any cardiac symptoms. According to daughter he has stage I diastolic dysfunction and normal ejection fraction. There is some concern that the cellulitis on the left upper thigh has increased in size. Patient states that it does feel warm but not necessarily tender. He has been afebrile and his white count decreased significantly overnight. I reviewed his renal function from his outpatient [place] chart. Patient's baseline creatinine appears to be 1.1. She did have to have another straight cath secondary to urinary retention of over 800 mL. Patient may require a Nix catheter if unable to void. Chest x-ray demonstrated a right upper lobe 1.0 cm lung nodule. Review of his [place] chart shows that this has had multiple follow-ups over the last [address] scan most recently done last month that showed it to be stable. Plan * Continue current treatment with vancomycin and Rocephin. * Repeat CBC and BMP * Procalcitonin and blood cultures still pending * Encourage diet * Length of stay likely 2 more days.
[2020-07-18] MEDS: cefTRIAXone 2 GM in Sodium Chloride 0.9% 100 ML IV SCH (17:54)
[2020-07-18] MEDS ORDERED: Calcium Carbonate 500 MG Tab.Chew PO PRN (19:12)
[2020-07-18] MEDS: Famotidine 20 MG Tab PO SCH (20:36)
[2020-07-18] MEDS: Vancomycin 1.75 GM in Sodium Chloride 0.9% 500 ML IV SCH (20:37)
[2020-07-19] MEDS: Insulin Glarg,Human.Rec.Analog 100 Unit/ML SUBCUT SCH (08:26)
[2020-07-19] MEDS: Metoprolol Tartrate 25 MG Tab PO SCH ×2 (08:27→22:07)
[2020-07-19] MEDS: Allopurinol 100 MG Tab PO SCH (08:27)
[2020-07-19] MEDS: Gabapentin 600 MG Tab PO SCH ×2 (08:27→22:08)
[2020-07-19] MEDS: Tamsulosin 0.4 MG Cap.ER PO SCH (08:27)
[2020-07-19] MEDS: Enoxaparin 40 MG/0.4 ML Syringe SUBCUT SCH (08:27)
[2020-07-19] MEDS: Aspirin 81 MG Tab.EC PO SCH (08:28)
[2020-07-19] MEDS: Rosuvastatin 10 MG Tab PO SCH (08:28)
[2020-07-19] MEDS: Famotidine 20 MG Tab PO SCH ×2 (08:28→22:08)
--- NOTE | 2020-07-19 10:36 | CT ---
CT chest Technique: Multiple axial sections were obtained from above the lung apices inferiorly through the lung bases. Intravenous contrast was not utilized. Reconstructed coronal and sagittal images were obtained. Comparison: Prior CT abdomen study of 10/20/11. Previous chest x-ray of 07/17/20 is available. Findings: Thoracic aorta shows atherosclerotic calcification with no aneurysm. Small lymph nodes are seen within the mediastinum which are felt to be within normal limits. Coronary artery calcification is present. No pericardial thickening is seen. Fatty infiltration is noted within the liver. Partially visualized calcified cyst is noted within the left kidney which is seen on prior CT abdominal and pelvic study. Scattered areas of pleural thickening are seen which are likely chronic. Mild interstitial change is seen within the left lung base most likely representing fibrosis. There is a nodule being seen within the probable right upper lung inferiorly measuring 1.3 cm in size. This correlates to the chest x-ray nodule. This shows no abnormal calcifications. Bone window setting show scattered degenerative change within the spine. Impression: 1. 1.3 cm nodule within the inferior right upper lung. This shows no abnormal calcifications. This is nonspecific for neoplasm versus benign nodule. 2. Other findings as noted above which are most likely chronic. Diagnostic code #9
[2020-07-19] MEDS: Tiotropium Bromide 4 GM Inhalation Spray (2.5mcg/1 dose; 10 doses) INH SCH (14:52)
--- NOTE | 2020-07-19 16:05 | PCM.PN ---
- General Info Date of Service: 07/19/20 Admission Dx/Problem (Free Text): Admission Diagnosis/Problem Admission Diagnosis/Problem Fall as cause of accidental injury in home as place of occurrence Subjective Update: [place] continues to improve. He is up and more active today. Appetite is good and he had a bowel movement today. Functional Status: Reports: Pain Controlled - Review of Systems General: Reports: No Symptoms HEENT: Reports: No Symptoms Pulmonary: Reports: No Symptoms Cardiovascular: Reports: No Symptoms Musculoskeletal: Reports: No Symptoms Neurological: Reports: No Symptoms Psychiatric: Reports: No Symptoms - Patient Data Vitals - Most Recent: Last Vital Signs Temp 97.9 F 07/19/20 11:32 Pulse 74 07/19/20 11:32 Resp 18 07/19/20 11:32 BP 122/68 07/19/20 11:32 Pulse Ox 93 L 07/19/20 14:52 Orthostatic Blood Pressure [ 102/78 Standing] Orthostatic Blood Pressure [ 122/76 Sitting] Orthostatic Blood Pressure [ 100/68 Supine] Weight - Most Recent: 261 lb 4.8 oz I&O - Last 24 Hours: Intake & Output 07/19/20 07/19/20 07/19/20 06:59 14:59 22:59 Intake Total 1250 610 Output Total 1375 Balance -125 610 Lab Results Last 24 Hours: Laboratory Results - last 24 hr 07/17/20 07/17/20 07/18/20 Range/Units 15:05 16:45 17:17 WBC (4.23-9.07) K/mm3 RBC (4.63-6.08) M/mm3 Hgb (13.7-17.5) gm/dl Hct (40.1-51.0) % MCV (79.0-92.2) fl MCH (25.7-32.2) pg MCHC (32.2-35.5) g/dl RDW Std Deviation (35.1-43.9) fL Plt Count (163-337) K/mm3 MPV (9.4-12.3) fl Neut % (Auto) (34.0-67.9) % Lymph % (Auto) (21.8-53.1) % [place] % (Auto) (5.3-12.2) % Eos % (Auto) (0.8-7.0) Baso % (Auto) (0.1-1.2) % Neut # (Auto) (1.78-5.38) K/mm3 Lymph # (Auto) (1.32-3.57) K/mm3 [place] # (Auto) (0.30-0.82) K/mm3 Eos # (Auto) (0.04-0.54) K/mm3 Baso # (Auto) (0.01-0.08) K/mm3 Sodium (136-145) mEq/L Potassium (3.5-5.1) mEq/L Chloride (98-107) mEq/L Carbon Dioxide (21-32) mEq/L Anion Gap (5-15) BUN (7-18) mg/dL Creatinine (0.7-1.3) mg/dL Est Cr Clr Drug Dosing mL/min Estimated GFR (MDRD) (>60) mL/min BUN/Creatinine Ratio (14-18) Glucose (83-115) mg/dL POC Glucose 223 H (83-110) mg/dL Calcium (8.5-10.1) mg/dL Phosphorus (2.6-4.7) mg/dL Magnesium (1.8-2.4) mg/dl Total Bilirubin (0.2-1.0) mg/dL AST (15-37) U/L ALT (16-63) U/L Alkaline Phosphatase (46-116) U/L C-Reactive Protein (<1.0) mg/dL Total Protein (6.4-8.2) g/dl Albumin (3.4-5.0) g/dl Globulin gm/dL Albumin/Globulin Ratio (1-2) Procalcitonin 9.85 H ng/mL Ur Uric Acid Concent 47.9 mg/dL 07/18/20 07/18/20 07/18/20 Range/Units 18:30 18:30 20:34 WBC 9.83 H (4.23-9.07) K/mm3 RBC 4.66 (4.63-6.08) M/mm3 Hgb 13.4 L (13.7-17.5) gm/dl Hct 41.4 (40.1-51.0) % MCV 88.8 (79.0-92.2) fl MCH 28.8 (25.7-32.2) pg MCHC 32.4 (32.2-35.5) g/dl RDW Std Deviation 44.3 H (35.1-43.9) fL Plt Count 159 L (163-337) K/mm3 MPV 9.6 (9.4-12.3) fl Neut % (Auto) 73.1 H (34.0-67.9) % Lymph % (Auto) 15.3 L (21.8-53.1) % Winston % (Auto) 10.8 (5.3-12.2) % Eos % (Auto) 0.4 L (0.8-7.0) Baso % (Auto) 0.1 (0.1-1.2) % Neut # (Auto) 7.19 H (1.78-5.38) K/mm3 Lymph # (Auto) 1.50 (1.32-3.57) K/mm3 Winston # (Auto) 1.06 H (0.30-0.82) K/mm3 Eos # (Auto) 0.04 (0.04-0.54) K/mm3 Baso # (Auto) 0.01 (0.01-0.08) K/mm3 Sodium 136 (136-145) mEq/L Potassium 4.1 (3.5-5.1) mEq/L Chloride 100 (98-107) mEq/L Carbon Dioxide 24 (21-32) mEq/L Anion Gap 16.1 H (5-15) BUN 27 H (7-18) mg/dL Creatinine 1.4 H (0.7-1.3) mg/dL Est Cr Clr Drug Dosing 51.38 mL/min Estimated GFR (MDRD) 49 (>60) mL/min BUN/Creatinine Ratio 19.3 H (14-18) Glucose 204 H (83-115) mg/dL POC Glucose 229 H (83-110) mg/dL Calcium 9.0 (8.5-10.1) mg/dL Phosphorus (2.6-4.7) mg/dL Magnesium (1.8-2.4) mg/dl Total Bilirubin (0.2-1.0) mg/dL AST (15-37) U/L ALT (16-63) U/L Alkaline Phosphatase (46-116) U/L C-Reactive Protein (<1.0) mg/dL Total Protein (6.4-8.2) g/dl Albumin (3.4-5.0) g/dl Globulin gm/dL Albumin/Globulin Ratio (1-2) Procalcitonin ng/mL Ur Uric Acid Concent mg/dL 07/19/20 07/19/20 07/19/20 Range/Units 06:00 06:00 07:20 WBC 8.70 (4.23-9.07) K/mm3 RBC 4.32 L (4.63-6.08) M/mm3 Hgb 12.6 L (13.7-17.5) gm/dl Hct 38.5 L (40.1-51.0) % MCV 89.1 (79.0-92.2) fl MCH 29.2 (25.7-32.2) pg MCHC 32.7 (32.2-35.5) g/dl RDW Std Deviation 43.8 (35.1-43.9) fL Plt Count 161 L (163-337) K/mm3 MPV 9.6 (9.4-12.3) fl Neut % (Auto) 70.4 H (34.0-67.9) % Lymph % (Auto) 16.8 L (21.8-53.1) % Winston % (Auto) 11.8 (5.3-12.2) % Eos % (Auto) 0.8 (0.8-7.0) Baso % (Auto) 0.1 (0.1-1.2) % Neut # (Auto) 6.12 H (1.78-5.38) K/mm3 Lymph # (Auto) 1.46 (1.32-3.57) K/mm3 Winston # (Auto) 1.03 H (0.30-0.82) K/mm3 Eos # (Auto) 0.07 (0.04-0.54) K/mm3 Baso # (Auto) 0.01 (0.01-0.08) K/mm3 Sodium 138 (136-145) mEq/L Potassium 4.0 (3.5-5.1) mEq/L Chloride 102 (98-107) mEq/L Carbon Dioxide 27 (21-32) mEq/L Anion Gap 13.0 (5-15) BUN 22 H (7-18) mg/dL Creatinine 1.3 (0.7-1.3) mg/dL Est Cr Clr Drug Dosing 55.33 mL/min Estimated GFR (MDRD) 54 (>60) mL/min BUN/Creatinine Ratio 16.9 (14-18) Glucose 192 H (83-115) mg/dL POC Glucose 219 H (83-110) mg/dL Calcium 9.3 (8.5-10.1) mg/dL Phosphorus 2.7 (2.6-4.7) mg/dL Magnesium 2.0 (1.8-2.4) mg/dl Total Bilirubin 0.6 (0.2-1.0) mg/dL AST 33 (15-37) U/L ALT 39 (16-63) U/L Alkaline Phosphatase 59 (46-116) U/L C-Reactive Protein 5.8 H* (<1.0) mg/dL Total Protein 6.3 L (6.4-8.2) g/dl Albumin 2.7 L (3.4-5.0) g/dl Globulin 3.6 gm/dL Albumin/Globulin Ratio 0.8 L (1-2) Procalcitonin ng/mL Ur Uric Acid Concent mg/dL 07/19/20 Range/Units 11:35 WBC (4.23-9.07) K/mm3 RBC (4.63-6.08) M/mm3 Hgb (13.7-17.5) gm/dl Hct (40.1-51.0) % MCV (79.0-92.2) fl MCH (25.7-32.2) pg MCHC (32.2-35.5) g/dl RDW Std Deviation (35.1-43.9) fL Plt Count (163-337) K/mm3 MPV (9.4-12.3) fl Neut % (Auto) (34.0-67.9) % Lymph % (Auto) (21.8-53.1) % Winston % (Auto) (5.3-12.2) % Eos % (Auto) (0.8-7.0) Baso % (Auto) (0.1-1.2) % Neut # (Auto) (1.78-5.38) K/mm3 Lymph # (Auto) (1.32-3.57) K/mm3 Winston # (Auto) (0.30-0.82) K/mm3 Eos # (Auto) (0.04-0.54) K/mm3 Baso # (Auto) (0.01-0.08) K/mm3 Sodium (136-145) mEq/L Potassium (3.5-5.1) mEq/L Chloride (98-107) mEq/L Carbon Dioxide (21-32) mEq/L Anion Gap (5-15) BUN (7-18) mg/dL Creatinine (0.7-1.3) mg/dL Est Cr Clr Drug Dosing mL/min Estimated GFR (MDRD) (>60) mL/min BUN/Creatinine Ratio (14-18) Glucose (83-115) mg/dL POC Glucose 240 H (83-110) mg/dL Calcium (8.5-10.1) mg/dL Phosphorus (2.6-4.7) mg/dL Magnesium (1.8-2.4) mg/dl Total Bilirubin (0.2-1.0) mg/dL AST (15-37) U/L ALT (16-63) U/L Alkaline Phosphatase (46-116) U/L C-Reactive Protein (<1.0) mg/dL Total Protein (6.4-8.2) g/dl Albumin (3.4-5.0) g/dl Globulin gm/dL Albumin/Globulin Ratio (1-2) Procalcitonin ng/mL Ur Uric Acid Concent mg/dL David Results Last 24 Hours: Microbiology 07/17/20 15:15 Aerobic Blood Culture - Preliminary Blood - Venous - Lab Draw NO GROWTH AFTER 2 DAYS Anaerobic Blood Culture - Preliminary NO GROWTH AFTER 2 DAYS 07/17/20 15:05 Aerobic Blood Culture - Preliminary Blood - Venous NO GROWTH AFTER 2 DAYS Anaerobic Blood Culture - Preliminary NO GROWTH AFTER 2 DAYS Med Orders - Current: Current Medications Acetaminophen (Tylenol) 650 mg PO Q4H PRN PRN Reason: Pain (Mild 1-3)/fever Last Admin: 07/18/20 04:45 Dose: 650 mg Documented by: Albuterol (Proventil Neb Soln) 2.5 mg NEB Q2H PRN PRN Reason: Shortness Of Breath/wheezing Albuterol/Ipratropium (Duoneb 3.0-0.5 Mg/3 Ml) 3 ml NEB Q4H PRN PRN Reason: Shortness Of Breath/wheezing Allopurinol (Zyloprim) 100 mg PO DAILY [facility] Last Admin: 07/19/20 08:27 Dose: 100 mg Documented by: Aspirin (Halfprin) 81 mg PO DAILY [facility] Last Admin: 07/19/20 08:28 Dose: 81 mg Documented by: Calcium Carbonate/Glycine (Tums) 1,000 mg PO Q4HR PRN PRN Reason: Indigestion Last Admin: 07/18/20 19:26 Dose: 1,000 mg Documented by: Enoxaparin Sodium (Lovenox) 40 mg SUBCUT DAILY [facility] Last Admin: 07/19/20 08:27 Dose: 40 mg Documented by: Famotidine (Pepcid) 20 mg PO BID [facility] Last Admin: 07/19/20 08:28 Dose: 20 mg Documented by: Gabapentin (Neurontin) 600 mg PO BID [facility] Last Admin: 07/19/20 08:27 Dose: 600 mg Documented by: Ceftriaxone Sodium 2 gm/ (Sodium Chloride) 100 mls @ 200 mls/hr IV Q24H [facility] Last Admin: 07/18/20 17:54 Dose: 200 mls/hr Documented by: Vancomycin HCl 1.75 gm/ Sodium (Chloride) 500 mls @ 250 mls/hr IV Q24H [facility] Last Admin: 07/18/20 20:37 Dose: 250 mls/hr Documented by: Insulin Glargine (Lantus) 10 unit SUBCUT DAILY [facility] Last Admin: 07/19/20 08:26 Dose: 10 units Documented by: Insulin Glargine (Lantus) 5 unit SUBCUT BEDTIME [facility] Insulin Human Lispro (Humalog) 0 unit SUBCUT QIDACANDBED [facility]; Protocol Last Admin: 07/19/20 11:44 Dose: 2 unit Documented by: Metoprolol Tartrate (Lopressor) 25 mg PO BID [facility] Last Admin: 07/19/20 08:27 Dose: 25 mg Documented by: Ondansetron HCl (Zofran) 4 mg IV Q4H PRN PRN Reason: Nausea/Vomiting Rosuvastatin Calcium (Crestor) 10 mg PO DAILY [facility] Last Admin: 07/19/20 08:28 Dose: 10 mg Documented by: Tamsulosin HCl (Flomax) 0.4 mg PO DAILY [facility] Last Admin: 07/19/20 08:27 Dose: 0.4 mg Documented by: Tiotropium [place] (Spiriva Respimat) 0 gm INH DAILY [facility] Last Admin: 07/19/20 14:52 Dose: 4 gm Documented by: Vancomycin HCl (Pharmacy To Dose - Vancomycin) 1 dose .XX ASDIRECTED PRN PRN Reason: RX TO DOSE VANCO Discontinued Medications Acetaminophen (Tylenol) 975 mg PO ONETIME ONE Stop: 07/17/20 16:34 Last Admin: 07/17/20 16:59 Dose: 975 mg Documented by: Gabapentin (Neurontin) 600 mg PO BID [facility] Last Admin: 07/18/20 01:51 Dose: Not Given Documented by: Dextrose/Sodium Chloride (Dextrose 5%-Normal Saline) 1,000 mls @ 125 mls/hr IV ASDIRECTED [facility] Sodium Chloride (Normal Saline) Confirm Administered Dose 1,000 mls @ as directed .ROUTE .STK-MED ONE Stop: 07/17/20 15:48 Last Admin: 07/17/20 15:52 Dose: Not Given Documented by: Sodium Chloride (Normal Saline) 500 mls @ 999 mls/hr IV .BOLUS ONE Stop: 07/17/20 16:17 Last Admin: 07/17/20 15:50 Dose: 999 mls/hr Documented by: Sodium Chloride (Normal Saline) 1,000 mls @ 999 mls/hr IV ONETIME ONE Stop: 07/17/20 17:35 Last Admin: 07/17/20 17:35 Dose: 999 mls/hr Documented by: Ceftriaxone Sodium 2 gm/ (Sodium Chloride) 100 mls @ 200 mls/hr IV ONETIME ONE Stop: 07/17/20 17:19 Last Admin: 07/17/20 17:01 Dose: 200 mls/hr Documented by: Sodium Chloride (Normal Saline) Confirm Administered Dose 250 mls @ as directed .ROUTE .STK-MED ONE Stop: 07/17/20 19:38 Last Admin: 07/18/20 01:52 Dose: Not Given Documented by: Vancomycin HCl 2 gm/ Sodium (Chloride) 500 mls @ 250 mls/hr IV ONETIME ONE Stop: 07/17/20 23:29 Last Admin: 07/17/20 21:47 Dose: 250 mls/hr Documented by: Sodium Chloride (Normal Saline) 1,000 mls @ 100 mls/hr IV ASDIRECTED [facility] Stop: 07/18/20 19:14 Last Admin: 07/18/20 10:10 Dose: 100 mls/hr Documented by: - Exam General: Alert, Oriented HEENT: Pupils Equal, Mucous Membr. Moist/Scalp Level Neck: Supple Lungs: Normal Respiratory Effort, Rales Cardiovascular: Regular Rate, Regular Rhythm GI/Abdominal Exam: Normal Bowel Sounds, Soft, Non-Tender, No Distention Extremities: Normal Inspection, Redness (Improving redness of the left lower extremity at the calf. No significant change in the proximal medial thigh.) Skin: Warm, Dry, Intact Psy/Mental Status: Alert, Normal Affect, Normal Mood Sepsis Event Note - Evaluation Sepsis Screening Result: No Definite Risk - Focused Exam Vital Signs: Vital Signs Temp Pulse Resp BP Pulse Ox Pulse Ox 07/19/20 14:52 93 L 07/19/20 11:32 97.9 F 74 18 122/68 94 L 07/19/20 08:27 80 151/98 H 07/19/20 08:25 98.1 F 80 19 151/98 H 95 07/19/20 06:20 97.9 F 85 20 132/74 94 L - Problem List & Annotations (1) Severe sepsis SNOMED Code(s): 66628473 Code(s): A41.9 - SEPSIS, UNSPECIFIED ORGANISM; R65.20 - SEVERE SEPSIS WITHOUT SEPTIC SHOCK Status: Acute Current Visit: Yes (2) CHF (congestive heart failure), NYHA class III SNOMED Code(s): 990826787, 378935128 Code(s): I50.9 - HEART FAILURE, UNSPECIFIED Status: Acute Current Visit: Yes Qualifiers: Congestive heart failure type: diastolic Congestive heart failure chronicity: acute on chronic Qualified Code(s): I50.33 - Acute on chronic diastolic (congestive) heart failure (3) Diabetes mellitus SNOMED Code(s): 43621031 Code(s): E11.9 - TYPE 2 DIABETES MELLITUS WITHOUT COMPLICATIONS Status: Acute Current Visit: Yes Qualifiers: Chronic kidney disease stage: stage 3 (moderate) (4) Generalized weakness SNOMED Code(s): 71204367 Code(s): R53.1 - WEAKNESS Status: Acute Current Visit: Yes (5) Lung nodules SNOMED Code(s): 725316756 Code(s): R91.8 - OTHER NONSPECIFIC ABNORMAL FINDING OF LUNG FIELD Status: Acute Current Visit: Yes (6) Acute renal insufficiency SNOMED Code(s): 203575319 Code(s): N28.9 - DISORDER OF KIDNEY AND URETER, UNSPECIFIED Status: Acute Current Visit: Yes - Problem List Review Problem List Initiated/Reviewed/Updated: Yes - My Orders Last 24 Hours: My Active Orders 07/18/20 17:00 cefTRIAXone [Rocephin] 2 gm Sodium Chloride 0.9% [Normal Saline] 100 ml IV Q24H 07/18/20 19:12 Calcium Carbonate [Tums] 1,000 mg PO Q4HR PRN 07/18/20 21:00 Famotidine [Pepcid] 20 mg PO BID Vancomycin 1.75 gm Sodium Chloride 0.9% [Normal Saline] 500 ml IV Q24H 07/19/20 14:45 Tiotropium [place] [Spiriva Respimat] 0 gm INH DAILY 07/19/20 20:00 VANCOMYCIN TROUGH [CHEM] Timed 07/19/20 21:00 Insulin Glarg,Human.Rec.Analog [LantUS] 5 unit SUBCUT BEDTIME - Plan Plan:: Assessment 07/17/2020 75-year-old male with significantly erythematous and warm rash on the left lower extremity and the patient has had history of cellulitis in the past presents in severe sepsis and lactic acidosis. Severe sepsis Left lower extremity cellulitis * Given fluid bolus and started on Rocephin and vancomycin * White count 15.2 with left shift, C-reactive protein 21.2 * Lactic acid 3.1 with repeat less than 2 after fluid bolus Rhabdomyolysis Patient was on the ground for unknown length of time. 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 * Crackles in the lungs likely secondary to sepsis BPH * Patient having difficulty urinating * On exam the prostate was enlarged but only minimally tender making prostatitis less likely Plan * Admit to floor * Continue vancomycin and Rocephin * IV fluids 75 mL an hour and continue monitoring for rhabdo * Sliding scale insulin and fingerstick blood sugar 4 times daily * Recheck creatinine kinase in the morning. * CBC, CMP, C-reactive protein, magnesium in the morning * Procalcitonin pending * Blood cultures pending * Albuterol and DuoNeb as needed * Urinary retention protocol. Patient has been given fluid bolus which may be causing some urinary retention. Patient had to have a straight cath when he got to the floor. Consider Nix if this continues. * Spoke with daughter Stephanie and several family members on the phone. 1 daughter is a nurse in [place] and her granddaughter is a nurse practitioner. They had several questions which I tried to answer fully. * VTE prophylaxis with Lovenox * CODE STATUS: Full code * Length of stay likely 3 to 4 days. 07/18/2020 Patient has had a significant improvement overnight. His lactic acid is normal, his white count has decreased to 11, C-reactive protein is decreased to 14.2, and his renal function has improved slightly with a creatinine of 1.5 from 1.6. Anion gap is down to 15.9. CPK is also improved down to 609. Blood sugars continue to be in the 200s which is poorly controlled. He continues to be without any cardiac symptoms. According to daughter he has stage I diastolic dysfunction and normal ejection fraction. There is some concern that the cellulitis on the left upper thigh has increased in size. Patient states that it does feel warm but not necessarily tender. He has been afebrile and his white count decreased significantly overnight. I reviewed his renal function from his outpatient [place] chart. Patient's baseline creatinine appears to be 1.1. She did have to have another straight cath secondary to urinary retention of over 800 mL. Patient may require a Nix catheter if unable to void. Chest x-ray demonstrated a right upper lobe 1.0 cm lung nodule. Review of his [place] chart shows that this has had multiple follow-ups over the last [address] scan most recently done last month that showed it to be stable. Plan * Continue current treatment with vancomycin and Rocephin. * Repeat CBC and BMP * Procalcitonin and blood cultures still pending * Encourage diet * Length of stay likely 2 more days. 07/19/2020 Patient continues to improve. Sepsis has resolved and cellulitis is improving. White count is now normal at 8.7 and his CRP is down to 5.8. Albumin has been dropping and it is down to 2.7 now likely secondary to his severe sepsis and cellulitis. Blood cultures so far are negative, but will continue vancomycin and Rocephin at this time. Likely discharge in 1 to 2 days. Procalcitonin was significantly elevated on admission at 9. Unfortunately, patient had to have a Nix catheter placed because of urinary retention. We will try to remove that tomorrow. He may require going home with the Nix and following up with his PCP and or urologist.
[2020-07-19] MEDS: cefTRIAXone 2 GM in Sodium Chloride 0.9% 100 ML IV SCH (16:54)
[2020-07-19] MEDS ORDERED: Insulin Glarg,Human.Rec.Analog 100 Unit/ML SUBCUT SCH (21:00)
[2020-07-19] MEDS ORDERED: Vancomycin 2 GM in Sodium Chloride 0.9% 500 ML IV SCH (22:00)
[2020-07-19] MEDS: Vancomycin 1.75 GM in Sodium Chloride 0.9% 500 ML IV SCH (22:58)
[2020-07-20] MEDS: Enoxaparin 40 MG/0.4 ML Syringe SUBCUT SCH (08:22)
[2020-07-20] MEDS: Gabapentin 600 MG Tab PO SCH (08:22)
[2020-07-20] MEDS: Insulin Glarg,Human.Rec.Analog 100 Unit/ML SUBCUT SCH (08:22)
[2020-07-20] MEDS: Aspirin 81 MG Tab.EC PO SCH (08:23)
[2020-07-20] MEDS: Metoprolol Tartrate 25 MG Tab PO SCH (08:23)
[2020-07-20] MEDS: Rosuvastatin 10 MG Tab PO SCH (08:23)
[2020-07-20] MEDS: Famotidine 20 MG Tab PO SCH (08:23)
[2020-07-20] MEDS: Tamsulosin 0.4 MG Cap.ER PO SCH (08:23)
[2020-07-20] MEDS: Allopurinol 100 MG Tab PO SCH (08:23)
[2020-07-20] MEDS: Tiotropium Bromide 4 GM Inhalation Spray (2.5mcg/1 dose; 10 doses) INH SCH (08:25)
[2020-07-20] MEDS ORDERED: Magnesium Sulfate/Water 2 GM/50 ML BAG IV ONE (10:00)
[2020-07-20] MEDS ORDERED: Vancomycin 2 GM in Sodium Chloride 0.9% 500 ML IV SCH (16:00)
[2020-07-20 16:02] VITALS: BP 149/73; PULSE 81
--- NOTE | 2020-07-20 16:15 | PCM.DCSUM1 ---
Discharge Summary - Hospital Course HPI Initial Comments: 75-year-old male with history of coronary artery disease and coronary bypass surgery presented to the emergency department after waking up on the floor at 0700 hrs. this morning. Patient does not know how he got on the floor, but when he tried to get up and walk he fell back down. He tried to crawl to a piece of furniture to pick him self up, but was unable to. Family member did help him get into the car who took him to the hospital. Patient denies any chest pain, worsening of his shortness of breath, nausea, or vomiting. He states he has been getting weaker over the last 3 days. He has a history of being hospitalized secondary to a left lower leg cellulitis. His triple bypass coronary artery surgery was done in 2002 or 2003 and he has also had a thoracic aortic graft placement. His cardiothoracic surgeon is Dr. Pandey from [facility] in [place]. Assessment 75-year-old male with significantly erythematous and warm rash on the left lower extremity and the patient has had history of cellulitis in the past presents in severe sepsis and lactic acidosis. Severe sepsis Left lower extremity cellulitis * Given fluid bolus and started on Rocephin and vancomycin * White count 15.2 with left shift, C-reactive protein 21.2 * Lactic acid 3.1 with repeat less than 2 after fluid bolus Rhabdomyolysis Patient was on the ground for unknown length of time. 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 * Crackles in the lungs likely secondary to sepsis BPH * Patient having difficulty urinating * On exam the prostate was enlarged but only minimally tender making prostatitis less likely Plan * Admit to floor * Continue vancomycin and Rocephin * IV fluids 35 mL an hour and continue monitoring for rhabdo * Sliding scale insulin and fingerstick blood sugar 4 times daily * Recheck creatinine kinase in the morning. * CBC, CMP, C-reactive protein, magnesium in the morning * Procalcitonin pending * Blood cultures pending * Albuterol and DuoNeb as needed * Urinary retention protocol. Patient has been given fluid bolus which may be causing some urinary retention. Patient had to have a straight cath when he got to the floor. Consider Nix if this continues. * Spoke with daughter Stephanie and several family members on the phone. 1 daughter is a nurse in [place] and her granddaughter is a nurse practitioner. They had several questions which I tried to answer fully. * VTE prophylaxis with Lovenox * CODE STATUS: Full code * Length of stay likely 3 to 4 days. - Mortality Measure Prognosis:: Poor Diagnosis: Stroke: No - Discharge Data Discharge Date: 07/20/20 Discharge Disposition: Home, Self-Care 01 Condition: Good - Referral to Home Health Reason for Homebound Status: Face to Face meeting with pt and or family. Pt has pulmonary falls, CHF and weakness. Pt is in need Home Health Care services for; low activity tolerance, functional mobility, standing balance, strength, transfers. Nursing for vitals, skilled assessment, medication education, disease management and disease education. Physical therapy for pt for gait training, rishi romuscular reduction, safety education therapeutic exercises, and transfer training. Occupational therapy for activity tolerance, self-care training, ADLs and t/f training. Pt is currently homebound related to being walker dependent, decreased activity tolerance, and a decreased level of endurance. Pt will be followed by his primary provider, Nathanael Johnson. Primary Care Physician: Nathanael Johnson MD - Discharge Diagnosis/Problem(s) (1) Severe sepsis SNOMED Code(s): 08507514 ICD Code: A41.9 - SEPSIS, UNSPECIFIED ORGANISM; R65.20 - SEVERE SEPSIS WITHOUT SEPTIC SHOCK Status: Acute Current Visit: Yes (2) CHF (congestive heart failure), NYHA class III SNOMED Code(s): 696255382, 785388732 ICD Code: I50.9 - HEART FAILURE, UNSPECIFIED Status: Acute Current Visit: Yes Qualifiers: Congestive heart failure type: diastolic Congestive heart failure chronicity: acute on chronic Qualified Code(s): I50.33 - Acute on chronic diastolic (congestive) heart failure (3) Diabetes mellitus SNOMED Code(s): 97043267 ICD Code: E11.9 - TYPE 2 DIABETES MELLITUS WITHOUT COMPLICATIONS Status: Acute Current Visit: Yes Qualifiers: Chronic kidney disease stage: stage 3 (moderate) (4) Generalized weakness SNOMED Code(s): 29044687 ICD Code: R53.1 - WEAKNESS Status: Acute Current Visit: Yes (5) Lung nodules SNOMED Code(s): 316557276 ICD Code: R91.8 - OTHER NONSPECIFIC ABNORMAL FINDING OF LUNG FIELD Status: Acute Current Visit: Yes (6) Acute renal insufficiency SNOMED Code(s): 700398850 ICD Code: N28.9 - DISORDER OF KIDNEY AND URETER, UNSPECIFIED Status: Acute Current Visit: Yes - Patient Summary/Data Consults: Consultations 07/17/20 21:57 OT Evaluation and Treatment [CONS] Routine PT Evaluation and Treatment [CONS] Routine Hospital Course: 07/18/2020 Patient has had a significant improvement overnight. His lactic acid is normal, his white count has decreased to 11, C-reactive protein is decreased to 14.2, and his renal function has improved slightly with a creatinine of 1.5 from 1.6. Anion gap is down to 15.9. CPK is also improved down to 609. Blood sugars continue to be in the 200s which is poorly controlled. He continues to be without any cardiac symptoms. According to daughter he has stage I diastolic dysfunction and normal ejection fraction. There is some concern that the cellulitis on the left upper thigh has increased in size. Patient states that it does feel warm but not necessarily tender. He has been afebrile and his white count decreased significantly overnight. I reviewed his renal function from his outpatient [facility] chart. Patient's baseline creatinine appears to be 1.1. She did have to have another straight cath secondary to urinary retention of over 800 mL. Patient may require a Nix catheter if unable to void. Chest x-ray demonstrated a right upper lobe 1.0 cm lung nodule. Review of his [facility] chart shows that this has had multiple follow-ups over the last [address] scan most recently done last month that showed it to be stable. Plan * Continue current treatment with vancomycin and Rocephin. * Repeat CBC and BMP * Procalcitonin and blood cultures still pending * Encourage diet * Length of stay likely 2 more days. 07/19/2020 Patient continues to improve. Sepsis has resolved and cellulitis is improving. White count is now normal at 8.7 and his CRP is down to 5.8. Albumin has been dropping and it is down to 2.7 now likely secondary to his severe sepsis and cellulitis. Blood cultures so far are negative, but will continue vancomycin and Rocephin at this time. Likely discharge in 1 to 2 days. Procalcitonin was significantly elevated on admission at 9. Unfortunately, patient had to have a Nix catheter placed because of urinary retention. We will try to remove that tomorrow. He may require going home with the Nix and following up with his PCP and or urologist. 07/20/2020 [place] continues to improve. White count is down to 6.45 with a creatinine of 1.1 and a C-reactive protein of 3.1. Patient is on room air and his MRSA screen was negative. He will be sent home on Keflex. Patient also urinated after having his catheter removed, therefore he he will not need to be seen by urology acutely. He may benefit still from a urological appointment based on the size of his BPH. - Patient Instructions Diet: Heart Healthy Diet Activity: As Tolerated Driving: Do Not Drive Showering/Bathing: May Shower - Discharge Plan *PRESCRIPTION DRUG MONITORING PROGRAM REVIEWED*: No *COPY OF PRESCRIPTION DRUG MONITORING REPORT IN PATIENT AMY: No Prescriptions/Med Rec: cephALEXin [Keflex] 500 mg PO Q6H #28 cap Home Medications: Home Meds Metoprolol Tartrate [Lopressor] 25 mg PO BID 11/23/13 [History] Tamsulosin HCl 0.4 mg PO DAILY 11/23/13 [History] Tiotropium [Spiriva Handihaler] 18 mcg INH DAILY 11/23/13 [History] allopurinoL [Allopurinol] 100 mg PO DAILY 11/23/13 [History] atorvaSTATin [Lipitor] 40 mg PO DAILY 11/23/13 [History] lisinopriL [Prinivil] 5 mg PO DAILY 11/23/13 [History] Aspirin [Halfprin] 81 mg PO DAILY 09/10/14 [History] Gabapentin 600 mg PO BID 09/10/14 [History] metFORMIN [Glucophage XR] 1,000 mg PO BID 11/09/15 [History] cephALEXin [Keflex] 500 mg PO Q6H #28 cap 07/20/20 [Rx] Oxygen Therapy Mode: Room Air Patient Handouts: Heart Failure, Self Care, Diabetes Mellitus and Sick Day Management, Heart Failure Action Plan, Type 2 Diabetes Mellitus, Self Care, Adult Forms: ED Department Discharge Referrals: Nathanael Johnson MD [Primary Care Provider] - - Discharge Summary/Plan Comment DC Time >30 min.: Yes - General Info Date of Service: 07/20/20 Admission Dx/Problem (Free Text: Admission Diagnosis/Problem Admission Diagnosis/Problem Fall as cause of accidental injury in home as place of occurrence Subjective Update: Patient is essentially back to baseline. He does need home health for [employer] care which was ordered in the [id number] done today. Functional Status: Reports: Pain Controlled - Review of Systems General: Reports: No Symptoms HEENT: Reports: No Symptoms Pulmonary: Reports: No Symptoms Cardiovascular: Reports: No Symptoms Gastrointestinal: Reports: No Symptoms Musculoskeletal: Reports: No Symptoms Neurological: Reports: No Symptoms Psychiatric: Reports: No Symptoms - Patient Data Vitals - Most Recent: Last Vital Signs Temp 97.5 F 07/20/20 15:18 Pulse 81 07/20/20 15:18 Resp 16 07/20/20 15:18 BP 149/73 H 07/20/20 15:18 Pulse Ox 95 07/20/20 15:18 Orthostatic Blood Pressure [ 102/78 Standing] Orthostatic Blood Pressure [ 122/76 Sitting] Orthostatic Blood Pressure [ 100/68 Supine] Weight - Most Recent: 262 lb 3.2 oz I&O - Last 24 hours: Intake & Output 07/20/20 07/20/20 07/20/20 06:59 14:59 22:59 Intake Total 648 092 5772 Output Total 900 975 Balance 50 300 805 Lab Results - Last 24 hrs: Laboratory Results - last 24 hr 07/19/20 07/19/20 07/19/20 Range/Units 16:51 20:11 21:00 WBC (4.23-9.07) K/mm3 RBC (4.63-6.08) M/mm3 Hgb (13.7-17.5) gm/dl Hct (40.1-51.0) % MCV (79.0-92.2) fl MCH (25.7-32.2) pg MCHC (32.2-35.5) g/dl RDW Std Deviation (35.1-43.9) fL Plt Count (163-337) K/mm3 MPV (9.4-12.3) fl Neut % (Auto) (34.0-67.9) % Lymph % (Auto) (21.8-53.1) % [place] % (Auto) (5.3-12.2) % Eos % (Auto) (0.8-7.0) Baso % (Auto) (0.1-1.2) % Neut # (Auto) (1.78-5.38) K/mm3 Lymph # (Auto) (1.32-3.57) K/mm3 [place] # (Auto) (0.30-0.82) K/mm3 Eos # (Auto) (0.04-0.54) K/mm3 Baso # (Auto) (0.01-0.08) K/mm3 Sodium (136-145) mEq/L Potassium (3.5-5.1) mEq/L Chloride (98-107) mEq/L Carbon Dioxide (21-32) mEq/L Anion Gap (5-15) BUN (7-18) mg/dL Creatinine (0.7-1.3) mg/dL Est Cr Clr Drug Dosing mL/min Estimated GFR (MDRD) (>60) mL/min BUN/Creatinine Ratio (14-18) Glucose (83-115) mg/dL POC Glucose 187 H 233 H (83-110) mg/dL Calcium (8.5-10.1) mg/dL Phosphorus (2.6-4.7) mg/dL Magnesium (1.8-2.4) mg/dl Total Bilirubin (0.2-1.0) mg/dL AST (15-37) U/L ALT (16-63) U/L Alkaline Phosphatase (46-116) U/L C-Reactive Protein (<1.0) mg/dL Total Protein (6.4-8.2) g/dl Albumin (3.4-5.0) g/dl Globulin gm/dL Albumin/Globulin Ratio (1-2) Vancomycin Trough 7.2 L (10.0-20.0) MRSA (PCR) 07/20/20 07/20/20 07/20/20 Range/Units 06:23 06:23 11:23 WBC 6.45 (4.23-9.07) K/mm3 RBC 4.40 L (4.63-6.08) M/mm3 Hgb 12.8 L (13.7-17.5) gm/dl Hct 38.6 L (40.1-51.0) % MCV 87.7 (79.0-92.2) fl MCH 29.1 (25.7-32.2) pg MCHC 33.2 (32.2-35.5) g/dl RDW Std Deviation 41.7 (35.1-43.9) fL Plt Count 180 (163-337) K/mm3 MPV 9.4 (9.4-12.3) fl Neut % (Auto) 67.5 (34.0-67.9) % Lymph % (Auto) 17.7 L (21.8-53.1) % [place] % (Auto) 11.9 (5.3-12.2) % Eos % (Auto) 2.2 (0.8-7.0) Baso % (Auto) 0.2 (0.1-1.2) % Neut # (Auto) 4.36 (1.78-5.38) K/mm3 Lymph # (Auto) 1.14 L (1.32-3.57) K/mm3 [place] # (Auto) 0.77 (0.30-0.82) K/mm3 Eos # (Auto) 0.14 (0.04-0.54) K/mm3 Baso # (Auto) 0.01 (0.01-0.08) K/mm3 Sodium 140 (136-145) mEq/L Potassium 3.7 (3.5-5.1) mEq/L Chloride 105 (98-107) mEq/L Carbon Dioxide 25 (21-32) mEq/L Anion Gap 13.7 (5-15) BUN 21 H (7-18) mg/dL Creatinine 1.1 (0.7-1.3) mg/dL Est Cr Clr Drug Dosing 65.39 mL/min Estimated GFR (MDRD) > 60 (>60) mL/min BUN/Creatinine Ratio 19.1 H (14-18) Glucose 202 H (83-115) mg/dL POC Glucose 246 H (83-110) mg/dL Calcium 9.2 (8.5-10.1) mg/dL Phosphorus 2.9 (2.6-4.7) mg/dL Magnesium 1.7 L (1.8-2.4) mg/dl Total Bilirubin 0.6 (0.2-1.0) mg/dL AST 32 (15-37) U/L ALT 47 (16-63) U/L Alkaline Phosphatase 72 (46-116) U/L C-Reactive Protein 3.1 H* (<1.0) mg/dL Total Protein 6.3 L (6.4-8.2) g/dl Albumin 2.7 L (3.4-5.0) g/dl Globulin 3.6 gm/dL Albumin/Globulin Ratio 0.8 L (1-2) Vancomycin Trough (10.0-20.0) MRSA (PCR) 07/20/20 Range/Units 13:00 WBC (4.23-9.07) K/mm3 RBC (4.63-6.08) M/mm3 Hgb (13.7-17.5) gm/dl Hct (40.1-51.0) % MCV (79.0-92.2) fl MCH (25.7-32.2) pg MCHC (32.2-35.5) g/dl RDW Std Deviation (35.1-43.9) fL Plt Count (163-337) K/mm3 MPV (9.4-12.3) fl Neut % (Auto) (34.0-67.9) % Lymph % (Auto) (21.8-53.1) % [place] % (Auto) (5.3-12.2) % Eos % (Auto) (0.8-7.0) Baso % (Auto) (0.1-1.2) % Neut # (Auto) (1.78-5.38) K/mm3 Lymph # (Auto) (1.32-3.57) K/mm3 [place] # (Auto) (0.30-0.82) K/mm3 Eos # (Auto) (0.04-0.54) K/mm3 Baso # (Auto) (0.01-0.08) K/mm3 Sodium (136-145) mEq/L Potassium (3.5-5.1) mEq/L Chloride (98-107) mEq/L Carbon Dioxide (21-32) mEq/L Anion Gap (5-15) BUN (7-18) mg/dL Creatinine (0.7-1.3) mg/dL Est Cr Clr Drug Dosing mL/min Estimated GFR (MDRD) (>60) mL/min BUN/Creatinine Ratio (14-18) Glucose (83-115) mg/dL POC Glucose (83-110) mg/dL Calcium (8.5-10.1) mg/dL Phosphorus (2.6-4.7) mg/dL Magnesium (1.8-2.4) mg/dl Total Bilirubin (0.2-1.0) mg/dL AST (15-37) U/L ALT (16-63) U/L Alkaline Phosphatase (46-116) U/L C-Reactive Protein (<1.0) mg/dL Total Protein (6.4-8.2) g/dl Albumin (3.4-5.0) g/dl Globulin gm/dL Albumin/Globulin Ratio (1-2) Vancomycin Trough (10.0-20.0) MRSA (PCR) Negative [facility] Results - Last 24 hrs: Microbiology 07/17/20 15:15 Aerobic Blood Culture - Preliminary Blood - Venous - Lab Draw NO GROWTH AFTER 3 DAYS Anaerobic Blood Culture - Preliminary NO GROWTH AFTER 3 DAYS 07/17/20 15:05 Aerobic Blood Culture - Preliminary Blood - Venous NO GROWTH AFTER 3 DAYS Anaerobic Blood Culture - Preliminary NO GROWTH AFTER 3 DAYS Med Orders - Current: Current Medications Acetaminophen (Tylenol) 650 mg PO Q4H PRN PRN Reason: Pain (Mild 1-3)/fever Last Admin: 07/18/20 04:45 Dose: 650 mg Documented by: Albuterol (Proventil Neb Soln) 2.5 mg NEB Q2H PRN PRN Reason: Shortness Of Breath/wheezing Albuterol/Ipratropium (Duoneb 3.0-0.5 Mg/3 Ml) 3 ml NEB Q4H PRN PRN Reason: Shortness Of Breath/wheezing Allopurinol (Zyloprim) 100 mg PO DAILY [facility] Last Admin: 07/20/20 08:23 Dose: 100 mg Documented by: Aspirin (Halfprin) 81 mg PO DAILY [facility] Last Admin: 07/20/20 08:23 Dose: 81 mg Documented by: Calcium Carbonate/Glycine (Tums) 1,000 mg PO Q4HR PRN PRN Reason: Indigestion Last Admin: 07/18/20 19:26 Dose: 1,000 mg Documented by: Enoxaparin Sodium (Lovenox) 40 mg SUBCUT DAILY [facility] Last Admin: 07/20/20 08:22 Dose: 40 mg Documented by: Famotidine (Pepcid) 20 mg PO BID [facility] Last Admin: 07/20/20 08:23 Dose: 20 mg Documented by: Gabapentin (Neurontin) 600 mg PO BID [facility] Last Admin: 07/20/20 08:22 Dose: 600 mg Documented by: Ceftriaxone Sodium 2 gm/ (Sodium Chloride) 100 mls @ 200 mls/hr IV Q24H [facility] Last Admin: 07/19/20 16:54 Dose: 200 mls/hr Documented by: Vancomycin HCl 2 gm/ Sodium (Chloride) 500 mls @ 250 mls/hr IV Q18H [facility] Last Admin: 07/20/20 15:03 Dose: 250 mls/hr Documented by: Insulin Glargine (Lantus) 10 unit SUBCUT DAILY [facility] Last Admin: 07/20/20 08:22 Dose: 10 units Documented by: Insulin Glargine (Lantus) 5 unit SUBCUT BEDTIME [facility] Last Admin: 07/19/20 22:07 Dose: 5 units Documented by: Insulin Human Lispro (Humalog) 0 unit SUBCUT QIDACANDBED [facility]; Protocol Last Admin: 07/20/20 11:54 Dose: 2 unit Documented by: Metoprolol Tartrate (Lopressor) 25 mg PO BID [facility] Last Admin: 07/20/20 08:23 Dose: 25 mg Documented by: Ondansetron HCl (Zofran) 4 mg IV Q4H PRN PRN Reason: Nausea/Vomiting Rosuvastatin Calcium (Crestor) 10 mg PO DAILY [facility] Last Admin: 07/20/20 08:23 Dose: 10 mg Documented by: Tamsulosin HCl (Flomax) 0.4 mg PO DAILY [facility] Last Admin: 07/20/20 08:23 Dose: 0.4 mg Documented by: Tiotropium [place] (Spiriva Respimat) 0 gm INH DAILY [facility] Last Admin: 07/20/20 08:25 Dose: 4 gm Documented by: Vancomycin HCl (Pharmacy To Dose - Vancomycin) 1 dose .XX ASDIRECTED PRN PRN Reason: RX TO DOSE VANCO Discontinued Medications Acetaminophen (Tylenol) 975 mg PO ONETIME ONE Stop: 07/17/20 16:34 Last Admin: 07/17/20 16:59 Dose: 975 mg Documented by: Gabapentin (Neurontin) 600 mg PO BID [facility] Last Admin: 07/18/20 01:51 Dose: Not Given Documented by: Dextrose/Sodium Chloride (Dextrose 5%-Normal Saline) 1,000 mls @ 125 mls/hr IV ASDIRECTED [facility] Sodium Chloride (Normal Saline) Confirm Administered Dose 1,000 mls @ as directed .ROUTE .[facility] ONE Stop: 07/17/20 15:48 Last Admin: 07/17/20 15:52 Dose: Not Given Documented by: Sodium Chloride (Normal Saline) 500 mls @ 999 mls/hr IV .[facility]OL[facility] ONE Stop: 07/17/20 16:17 Last Admin: 07/17/20 15:50 Dose: 999 mls/hr Documented by: Sodium Chloride (Normal Saline) 1,000 mls @ 999 mls/hr IV ONETIME ONE Stop: 07/17/20 17:35 Last Admin: 07/17/20 17:35 Dose: 999 mls/hr Documented by: Ceftriaxone Sodium 2 gm/ (Sodium Chloride) 100 mls @ 200 mls/hr IV ONETIME ONE Stop: 07/17/20 17:19 Last Admin: 07/17/20 17:01 Dose: 200 mls/hr Documented by: Sodium Chloride (Normal Saline) Confirm Administered Dose 250 mls @ as directed .ROUTE .[facility] ONE Stop: 07/17/20 19:38 Last Admin: 07/18/20 01:52 Dose: Not Given Documented by: Vancomycin HCl 2 gm/ Sodium (Chloride) 500 mls @ 250 mls/hr IV ONETIME ONE Stop: 07/17/20 23:29 Last Admin: 07/17/20 21:47 Dose: 250 mls/hr Documented by: Vancomycin HCl 1.75 gm/ Sodium (Chloride) 500 mls @ 250 mls/hr IV Q24H [facility] Last Admin: 07/19/20 22:58 Dose: Not Given Documented by: Sodium Chloride (Normal Saline) 1,000 mls @ 100 mls/hr IV ASDIRECTED [facility] Stop: 07/18/20 19:14 Last Admin: 07/18/20 10:10 Dose: 100 mls/hr Documented by: Vancomycin HCl 2 gm/ Sodium (Chloride) 500 mls @ 250 mls/hr IV Q24H [facility] Last Admin: 07/19/20 22:09 Dose: 250 mls/hr Documented by: Magnesium Sulfate (Magnesium Sulfate In Water 2 Gm/50 Ml) 2 gm in 50 mls @ 25 mls/hr IV ONETIME ONE Stop: 07/20/20 11:59 Last Admin: 07/20/20 09:58 Dose: 25 mls/hr Documented by: Vancomycin HCl (Pharmacy To Dose - Vancomycin) 1 dose .XX ASDIRECTED PRN PRN Reason: RX TO DOSE VANCO - Exam Quality Assessment: Denies: Supplemental Oxygen General: Reports: Alert, Oriented HEENT: Reports: Pupils Equal, Mucous Membr. Moist/[place] Neck: Reports: Supple Lungs: Reports: Clear to Auscultation, Normal Respiratory Effort Cardiovascular: Reports: Regular Rate, Regular Rhythm GI/Abdominal Exam: Normal Bowel Sounds, Soft, Non-Tender, No Organomegaly, No Distention, No Abnormal Bruit, No Mass Extremities: Normal Inspection, Normal Range of Motion, Non-Tender, No Pedal Edema, Normal Capillary Refill Skin: Reports: Other (Erythema of the left lower extremity is much improved. Nontender.)
[2020-07-20] MEDS: cefTRIAXone 2 GM in Sodium Chloride 0.9% 100 ML IV SCH (17:27)
== END 2020-07-20 18:12 | disposition home or self-care (01) | DRG 871 ==
LOC: JD.ED 13:58 → JD.MS 18:42
PROVIDERS: ADMIT Family Medicine; ATTEND Family Medicine
DX: A41.9 Sepsis, unspecified organism (principal); W19.XXXA Unspecified fall, initial encounter; S70.01XA Contusion of right hip, initial encounter; I50.33 Acute on chronic diastolic (congestive) heart failure; L03.116 Cellulitis of left lower limb; H91.90 Unspecified hearing loss, unspecified ear; M62.82 Rhabdomyolysis; I13.0 Hypertensive heart and chronic kidney disease with heart failure and stage 1 through stage 4 chronic kidney disease, or unspecified chronic kidney disease; E78.00 Pure hypercholesterolemia, unspecified; R65.20 Severe sepsis without septic shock; G47.30 Sleep apnea, unspecified; I25.10 Atherosclerotic heart disease of native coronary artery without angina pectoris; G89.29 Other chronic pain; M54.9 Dorsalgia, unspecified; M19.90 Unspecified osteoarthritis, unspecified site; M10.9 Gout, unspecified; Z95.1 Presence of aortocoronary bypass graft; E11.40 Type 2 diabetes mellitus with diabetic neuropathy, unspecified; Z85.528 Personal history of other malignant neoplasm of kidney; Z79.84 Long term (current) use of oral hypoglycemic drugs; Z79.82 Long term (current) use of aspirin; Z79.899 Other long term (current) drug therapy; E78.5 Hyperlipidemia, unspecified; J44.9 Chronic obstructive pulmonary disease, unspecified; E11.65 Type 2 diabetes mellitus with hyperglycemia; Z79.4 Long term (current) use of insulin; N40.0 Benign prostatic hyperplasia without lower urinary tract symptoms; I11.0 Hypertensive heart disease with heart failure; E11.22 Type 2 diabetes mellitus with diabetic chronic kidney disease; N18.30 Chronic kidney disease, stage 3 unspecified; N28.9 Disorder of kidney and ureter, unspecified; R91.8 Other nonspecific abnormal finding of lung field; R53.1 Weakness; W18.30XA Fall on same level, unspecified, initial encounter; Y92.009 Unspecified place in unspecified non-institutional (private) residence as the place of occurrence of the external cause; G47.33 Obstructive sleep apnea (adult) (pediatric); Z20.822 Contact with and (suspected) exposure to COVID-19
CPT/HCPCS: 36415; 70450; 71045; 80053; 80179; 81001; 82550; 82553; 82962; 83036; 83605; 83735; 83880; 84145; 84484; 84560; 85025; 85610; 85652; 85730; 86140; 87040 ×2; 93005; 96365; 99285; A9270; J0696; J7030 ×2; J7050; U0002; 51701; 51702; 51798; 71250; 71250-26; 80048; 80202; 84100; 87641; 93010; 94640; 94760; 97110-GP; 97162-GP; 99223; 99232; 99233; 99239; J1650; J1815-GY; J3370; J3475; J7040

== ENCOUNTER 2021-07-16 12:09 | Emergency (ER) | payer MEDICARE, OTHER ==
[2021-07-16] MEDS ORDERED: Sodium Chloride 0.9% 10 ML Syringe FLUSH PRN (12:24)
[2021-07-16] MEDS ORDERED: Diltiazem 50 MG/10 ML SDV IVPUSH ONE (12:29)
[2021-07-16] MEDS ORDERED: Metoprolol Tartrate 50 MG Tab PO ONE (15:08)
[2021-07-16 16:13] VITALS: BP 100/80; PULSE 110
== END 2021-07-16 16:13 | disposition home or self-care (01) ==
LOC: JD.ED 12:09
DX: I48.92 Unspecified atrial flutter (principal); I10 Essential (primary) hypertension; I25.10 Atherosclerotic heart disease of native coronary artery without angina pectoris; E11.9 Type 2 diabetes mellitus without complications; J44.9 Chronic obstructive pulmonary disease, unspecified; M10.9 Gout, unspecified; N40.0 Benign prostatic hyperplasia without lower urinary tract symptoms; Z95.1 Presence of aortocoronary bypass graft; Z79.01 Long term (current) use of anticoagulants; Z79.82 Long term (current) use of aspirin; Z79.84 Long term (current) use of oral hypoglycemic drugs; Z79.899 Other long term (current) drug therapy; Z20.822 Contact with and (suspected) exposure to COVID-19
CPT/HCPCS: 36415; 71045; 80053; 84484; 85025; 85610; 85730; 93005; 93225; 93226; 96374; 99285; A9270; J3490; U0002

== ENCOUNTER 2021-10-23 12:20 | Inpatient (IN) | payer MEDICARE, OTHER ==
[2021-10-23] MEDS ORDERED: Sodium Chloride 0.9% 1,000 ML IV ONE (12:34)
[2021-10-23 14:09] LABS: CORONAVIRUS COVID-19 NAA NEGATIVE (NEGATIVE)
[2021-10-23] MEDS ORDERED: Acetaminophen 325 MG Tab PO PRN (15:31)
[2021-10-23] MEDS ORDERED: oxyCODONE 5 MG Tab PO PRN (15:31)
[2021-10-23] MEDS ORDERED: Sodium Chloride 0.9% 10 ML Syringe FLUSH PRN (15:34)
[2021-10-23] MEDS ORDERED: METFORMIN 500 MG PO SCH ×2 (20:00→20:14)
[2021-10-23] MEDS ORDERED: Gabapentin 300 MG Cap**PTOM PO SCH (20:00)
[2021-10-23] MEDS ORDERED: METOPROLOL SUCCINATE 50 MG PO SCH (21:00)
[2021-10-23] MEDS ORDERED: ATORVASTATIN 40 MG PO SCH (21:00)
[2021-10-23] MEDS ORDERED: LISINOPRIL 5 MG PO SCH (21:00)
[2021-10-24] MEDS ORDERED: Sodium Chloride 0.9% 500 ML IV ONE (05:28)
[2021-10-24] MEDS ORDERED: Sodium Chloride 0.9% 1,000 ML IV ONE (06:37)
[2021-10-24] MEDS ORDERED: metFORMIN 500 MG Tab PO SCH (07:00)
[2021-10-24] MEDS: Sodium Chloride 0.9% 1,000 ML ONE ×2 (07:00→08:22)
[2021-10-24 08:12] VITALS: BP 98/62; PULSE 73
[2021-10-24] MEDS ORDERED: Tamsulosin 0.4 MG Cap.ER PO SCH (09:00)
[2021-10-24] MEDS ORDERED: Aspirin 81 MG Tab.EC PO SCH (09:00)
[2021-10-24] MEDS ORDERED: Tiotropium Bromide 4 GM Inhalation Spray (2.5mcg/1 dose; 10 doses) INH SCH (09:00)
[2021-10-24] MEDS ORDERED: Allopurinol 100 MG Tab PO SCH (09:00)
[2021-10-24] MEDS ORDERED: Rivaroxaban 15 MG Tab PO SCH (09:00)
[2021-10-24] MEDS ORDERED: Furosemide 40 MG Tab PO SCH (09:00)
[2021-10-24] MEDS ORDERED: Sertraline 50 MG Tab PO SCH (09:00)
[2021-10-24] MEDS ORDERED: Amiodarone 200 MG Tab PO SCH (09:00)
[2021-10-24] MEDS ORDERED: Metoprolol Succinate 50 MG Tab.ER PO SCH (09:00)
[2021-10-24] MEDS ORDERED: Gabapentin 300 MG Cap PO SCH (09:00)
[2021-10-24] MEDS ORDERED: Furosemide 40 MG Tab PO PRN (12:00)
[2021-10-24] MEDS ORDERED: Gabapentin 600 MG Tab PO SCH (18:00)
[2021-10-24] MEDS ORDERED: Lisinopril 5 MG Tab PO SCH (21:00)
[2021-10-24] MEDS ORDERED: atorvaSTATin 40 MG Tab PO SCH (21:00)
== END 2021-10-24 09:15 | DRG 948 ==
LOC: JD.ED 12:20 → JD.MS 15:06 → OBSVTOIN 10-24 06:41 → JD.ICU 10-24 07:18
PROVIDERS: ADMIT Internal Medicine; ATTEND Internal Medicine
DX: N28.9 Disorder of kidney and ureter, unspecified (principal); Z91.81 History of falling; R06.02 Shortness of breath; R53.1 Weakness; E11.9 Type 2 diabetes mellitus without complications; I13.0 Hypertensive heart and chronic kidney disease with heart failure and stage 1 through stage 4 chronic kidney disease, or unspecified chronic kidney disease; H54.7 Unspecified visual loss; H91.90 Unspecified hearing loss, unspecified ear; I50.22 Chronic systolic (congestive) heart failure; E78.00 Pure hypercholesterolemia, unspecified; I25.10 Atherosclerotic heart disease of native coronary artery without angina pectoris; I11.0 Hypertensive heart disease with heart failure; G47.30 Sleep apnea, unspecified; E78.5 Hyperlipidemia, unspecified; J44.9 Chronic obstructive pulmonary disease, unspecified; G89.29 Other chronic pain; M54.9 Dorsalgia, unspecified; M10.9 Gout, unspecified; M19.90 Unspecified osteoarthritis, unspecified site; G47.33 Obstructive sleep apnea (adult) (pediatric); N40.0 Benign prostatic hyperplasia without lower urinary tract symptoms; Z91.013 Allergy to seafood; Z79.01 Long term (current) use of anticoagulants; Z79.84 Long term (current) use of oral hypoglycemic drugs; Z20.822 Contact with and (suspected) exposure to COVID-19; N18.9 Chronic kidney disease, unspecified; E11.22 Type 2 diabetes mellitus with diabetic chronic kidney disease; E66.9 Obesity, unspecified; Z96.653 Presence of artificial knee joint, bilateral; Z68.38 Body mass index [BMI] 38.0-38.9, adult; Z95.1 Presence of aortocoronary bypass graft; Z79.82 Long term (current) use of aspirin; I25.2 Old myocardial infarction; Z79.899 Other long term (current) drug therapy; Z90.49 Acquired absence of other specified parts of digestive tract; Z87.891 Personal history of nicotine dependence; Z68.28 Body mass index [BMI] 28.0-28.9, adult
CPT/HCPCS: 0240U; 36415; 70450; 71045; 80053; 81001; 82947; 83605; 83735; 83880; 84484; 85007; 85025; 85027; 85379; 85610; 85730; 87040; 93005; 99219; 99239; 99285-25; A9270-GY; G0378; J7030

== ENCOUNTER 2024-04-21 10:12 | Emergency (ER) | payer MEDICARE, OTHER ==
[2024-04-21 10:21] VITALS: BP 141/79; PULSE 72
== END 2024-04-21 11:57 | disposition home or self-care (01) ==
LOC: JD.ED 10:12
DX: S09.90XA Unspecified injury of head, initial encounter (principal); I11.0 Hypertensive heart disease with heart failure; I50.9 Heart failure, unspecified; I25.10 Atherosclerotic heart disease of native coronary artery without angina pectoris; J44.9 Chronic obstructive pulmonary disease, unspecified; E11.9 Type 2 diabetes mellitus without complications; E66.9 Obesity, unspecified; Z68.31 Body mass index [BMI] 31.0-31.9, adult; W19.XXXA Unspecified fall, initial encounter; Z79.899 Other long term (current) drug therapy; Z79.82 Long term (current) use of aspirin; Z79.84 Long term (current) use of oral hypoglycemic drugs; Z91.013 Allergy to seafood
CPT/HCPCS: 70450; 70450-26; 99283; 99284

== ENCOUNTER 2024-06-11 10:12 | Emergency (ER) | payer MEDICARE, OTHER ==
[2024-06-11 10:58] LABS: BASOPHILS PERCENT AUTO 0.4 % (0.0-1.0); EOSINOPHILS ABSOLUTE AUTO 0.2 K/mm3 (0.0-0.4); EOSINOPHILS PERCENT AUTO 1.4 % (0.0-6.0); HEMATOCRIT 46.8 % (42.0-52.0); HEMOGLOBIN 14.7 gm/dl (14.0-18.0); IMMATURE GRAN ABSOLUTE AUTO 0.11 K/mm3 (0.00-0.05); LYMPHOCYTES ABSOLUTE AUTO 1.5 K/mm3 (1.0-4.8); LYMPHOCYTES PERCENT AUTO 13.2 % (24.0-44.0); MEAN CORPUSCULAR HEMOGLOBIN 29.1 pg (28.0-32.0); MEAN CORPUSCULAR HGB CONC 31.4 g/dl (32.0-36.0); MEAN CORPUSCULAR VOLUME 92.5 fl (83.0-99.0); MEAN PLATELET VOLUME 9.2 fl (9.4-12.4); MONOCYTES ABSOLUTE AUTO 0.8 K/mm3 (0.0-0.8); MONOCYTES PERCENT AUTO 7.1 % (0.0-8.0); NEUTROPHILS ABSOLUTE AUTO 8.6 K/mm3 (1.8-7.7); NEUTROPHILS PERCENT AUTO 76.9 % (41.0-71.0); PLATELET COUNT,PLT 205 K/mm3 (150-400); RED BLOOD CELL COUNT 5.06 M/mm3 (4.52-5.90); WHITE BLOOD CELL COUNT,WBC 11.15 K/mm3 (3.9-11.3)
[2024-06-11 11:16] LABS: A/G RATIO 0.8 (1-2); ALBUMIN 3.2 g/dl (3.4-5.0); ANION GAP 15.5 (5-15); BILIRUBIN TOTAL 0.5 mg/dL (0.2-1.0); BUN/CREATININE RATIO 18.6 (14-18); CALCIUM 10.3 mg/dL (8.5-10.1); CREATININE 1.4 mg/dL (0.7-1.3); EST CRCL DRUG DOSING (CG) 46.77 mL/min; POTASSIUM,K 4.5 mEq/L (3.5-5.1); PROTEIN TOTAL,TP 7.3 g/dl (6.4-8.2)
[2024-06-11] MEDS: Albuterol/Ipratropium 3.0-0.5 MG/3 ML Neb Soln NEB ONE (11:19)
[2024-06-11] MEDS: Sodium Chloride 0.9% 10 ML Syringe FLUSH PRN (11:43)
[2024-06-11] MEDS: methylPREDNISolone Sodium Succinate 125 MG/2 ML SDV IVPUSH ONE (11:43)
[2024-06-11 13:05] VITALS: BP 114/66; PULSE 76
[2024-06-12] MEDS ORDERED: methylPREDNISolone Sodium Succinate 125 MG/2 ML SDV IVPUSH ONE (10:48)
== END 2024-06-11 12:44 | disposition home or self-care (01) ==
LOC: JD.ED 10:12
DX: J18.9 Pneumonia, unspecified organism (principal); I48.91 Unspecified atrial fibrillation; I25.10 Atherosclerotic heart disease of native coronary artery without angina pectoris; I25.2 Old myocardial infarction; I11.0 Hypertensive heart disease with heart failure; I50.9 Heart failure, unspecified; E78.00 Pure hypercholesterolemia, unspecified; J44.9 Chronic obstructive pulmonary disease, unspecified; M19.90 Unspecified osteoarthritis, unspecified site; E11.42 Type 2 diabetes mellitus with diabetic polyneuropathy; E66.9 Obesity, unspecified; Z95.5 Presence of coronary angioplasty implant and graft; Z96.659 Presence of unspecified artificial knee joint; Z87.891 Personal history of nicotine dependence; Z91.013 Allergy to seafood; Z79.82 Long term (current) use of aspirin; Z79.84 Long term (current) use of oral hypoglycemic drugs; Z79.51 Long term (current) use of inhaled steroids; Z79.01 Long term (current) use of anticoagulants; Z79.899 Other long term (current) drug therapy; Z68.32 Body mass index [BMI] 32.0-32.9, adult
CPT/HCPCS: 36415; 71045; 80053; 83880; 84484; 85025; 93005; 94640; 96374; 99284; J2919; 93010; J7620-GY

== ENCOUNTER 2025-03-03 09:16 | Inpatient (IN) | payer MEDICARE, OTHER ==
[2025-03-03 10:32] LABS: MEAN PLATELET VOLUME 10.1 fl (9.4-12.4); NRBC ABSOLUTE 0.00 (0.00-0.02); NRBC PERCENT 0.0 % (0.0-0.2); PLATELET COUNT,PLT 199 K/mm3 (150-400); RED BLOOD CELL COUNT 5.02 M/mm3 (4.52-5.90); WHITE BLOOD CELL COUNT,WBC 10.93 K/mm3 (3.9-11.3)
[2025-03-03 10:39] LABS: INR 1.07
[2025-03-03] MEDS: methylPREDNISolone Sodium Succinate 125 MG/2 ML SDV IVPUSH ONE (10:48)
[2025-03-03] MEDS: Sodium Chloride 0.9% 10 ML Syringe FLUSH PRN (10:48)
[2025-03-03 10:51] LABS: A/G RATIO 0.9 (1-2); ALANINE AMINOTRANSFERASE,ALT 21.0 U/L (16-63); ASPARTATE AMNIOTRANSFERASE,AST 13.0 U/L (15-37); BILIRUBIN TOTAL 0.6 mg/dL (0.2-1.0); BLOOD UREA NITROGEN,BUN 35.0 mg/dL (7-18); CARBON DIOXIDE,CO2 22.0 mEq/L (21-32); CHLORIDE,CL 104.0 mEq/L (98-107); CREATININE 1.4 mg/dL (0.7-1.3); EST CRCL DRUG DOSING (CG) 46.77 mL/min; ESTIMATED GFR 50.0 mL/min (>60); GLUCOSE RANDOM 156.0 mg/dL (70-99); POTASSIUM,K 4.6 mEq/L (3.5-5.1); PROTEIN TOTAL,TP 7.1 g/dl (6.4-8.2); SODIUM,NA 137.0 mEq/L (136-145); TROPONIN I HIGH SENSITIVITY 8.0 pg/mL (<=76)
[2025-03-03 10:53] LABS: BAND PERCENT MAN 0 % (0-10); BASOPHILS PERCENT MAN 0 (0.2-1.2); EOSINOPHILS PERCENT MAN 1 % (0.8-7.0); LYMPHOCYTES % ATYPICAL MANUAL 7 %; LYMPHOCYTES PERCENT MAN 18 % (20-40); MONOCYTES PERCENT MAN 6 % (2-10)
[2025-03-03 10:56] LABS: PLATELET COUNT ESTIMATE ADEQUATE
[2025-03-03 11:01] LABS: LACTIC ACID 2.2 mmol/L (0.4-2.0)
[2025-03-03 16:29] LABS: APPEARANCE,URINE CLEAR (Clear); GLUCOSE,URINE NEGATIVE (Negative); OCCULT BLOOD,URINE NEGATIVE (Negative)
[2025-03-03] MEDS ORDERED: 50% Dextrose in Water 50 ML Syringe IVPUSH PRN (16:35)
[2025-03-03] MEDS ORDERED: Ondansetron 4 MG Tab.DIS PO PRN (16:37)
[2025-03-03] MEDS ORDERED: Sennosides/Docusate Sodium 50-8.6 MG Tab PO PRN (16:37)
[2025-03-03 16:39] LABS: EPITHELIAL CELLS,URINE 0-5 /hpf (0-5)
[2025-03-03 17:52] LABS: LACTIC ACID 5.0 mmol/L (0.4-2.0)
[2025-03-03] MEDS: Insulin Lispro 100 Unit/ML 3 ML KwikPen SUBCUT SCH (17:55)
[2025-03-03 22:39] LABS: CORONAVIRUS COVID-19 NAA NEGATIVE (NEGATIVE); INFLUENZA A NAA NEGATIVE (NEGATIVE); RESPIRATORY SYNCYTIAL VIR NAA NEGATIVE (NEGATIVE)
[2025-03-04 06:03] LABS: BASOPHILS ABSOLUTE AUTO 0.0 K/mm3 (0.0-0.2); BASOPHILS PERCENT AUTO 0.1 % (0.0-1.0); EOSINOPHILS ABSOLUTE AUTO 0.0 K/mm3 (0.0-0.4); EOSINOPHILS PERCENT AUTO 0.0 % (0.0-6.0); IMMATURE GRAN ABSOLUTE AUTO 0.09 K/mm3 (0.00-0.05); IMMATURE GRAN PERCENT AUTO 0.9 % (0.0-0.4); LYMPHOCYTES ABSOLUTE AUTO 1.4 K/mm3 (1.0-4.8); LYMPHOCYTES PERCENT AUTO 13.4 % (24.0-44.0); MEAN PLATELET VOLUME 9.7 fl (9.4-12.4); MONOCYTES ABSOLUTE AUTO 0.7 K/mm3 (0.0-0.8); MONOCYTES PERCENT AUTO 7.1 % (0.0-8.0); NEUTROPHILS ABSOLUTE AUTO 8.1 K/mm3 (1.8-7.7); NEUTROPHILS PERCENT AUTO 78.5 % (41.0-71.0); NRBC ABSOLUTE 0.00 (0.00-0.02); NRBC PERCENT 0.0 % (0.0-0.2); PLATELET COUNT,PLT 180 K/mm3 (150-400); RED BLOOD CELL COUNT 4.48 M/mm3 (4.52-5.90); WHITE BLOOD CELL COUNT,WBC 10.37 K/mm3 (3.9-11.3)
[2025-03-04 06:22] LABS: A/G RATIO 0.9 (1-2); ALANINE AMINOTRANSFERASE,ALT 19.0 U/L (16-63); ASPARTATE AMNIOTRANSFERASE,AST 11.0 U/L (15-37); BILIRUBIN TOTAL 0.4 mg/dL (0.2-1.0); BLOOD UREA NITROGEN,BUN 32.0 mg/dL (7-18); CARBON DIOXIDE,CO2 21.0 mEq/L (21-32); CHLORIDE,CL 107.0 mEq/L (98-107); CREATININE 1.2 mg/dL (0.7-1.3); EST CRCL DRUG DOSING (CG) 54.56 mL/min; ESTIMATED GFR 61.0 mL/min (>60); GLUCOSE RANDOM 140.0 mg/dL (70-99); PHOSPHORUS 2.9 mg/dL (2.6-4.7); POTASSIUM,K 4.5 mEq/L (3.5-5.1); PROTEIN TOTAL,TP 6.7 g/dl (6.4-8.2); SODIUM,NA 139.0 mEq/L (136-145)
[2025-03-04 14:46] VITALS: BP 157/93; PULSE 77
== END 2025-03-04 14:44 | DRG 193 ==
LOC: JD.ED 09:16 → JD.MS 11:26
PROVIDERS: ADMIT Student in an Organized Health Care Education/Training Program; ATTEND Student in an Organized Health Care Education/Training Program
DX: J18.9 Pneumonia, unspecified organism (principal); J96.01 Acute respiratory failure with hypoxia; J44.0 Chronic obstructive pulmonary disease with (acute) lower respiratory infection; E11.9 Type 2 diabetes mellitus without complications; E87.20 Acidosis, unspecified; Z88.8 Allergy status to other drugs, medicaments and biological substances; I50.22 Chronic systolic (congestive) heart failure; Z66 Do not resuscitate; I48.91 Unspecified atrial fibrillation; I44.0 Atrioventricular block, first degree; G47.33 Obstructive sleep apnea (adult) (pediatric); H91.90 Unspecified hearing loss, unspecified ear; H54.7 Unspecified visual loss; E78.00 Pure hypercholesterolemia, unspecified; I11.0 Hypertensive heart disease with heart failure; N40.0 Benign prostatic hyperplasia without lower urinary tract symptoms; M54.9 Dorsalgia, unspecified; G89.29 Other chronic pain; M10.9 Gout, unspecified; I25.10 Atherosclerotic heart disease of native coronary artery without angina pectoris; M19.90 Unspecified osteoarthritis, unspecified site; E11.40 Type 2 diabetes mellitus with diabetic neuropathy, unspecified; E66.9 Obesity, unspecified; Z96.659 Presence of unspecified artificial knee joint; Z79.82 Long term (current) use of aspirin; Z68.32 Body mass index [BMI] 32.0-32.9, adult; I25.2 Old myocardial infarction; Z79.84 Long term (current) use of oral hypoglycemic drugs; Z79.01 Long term (current) use of anticoagulants; Z95.5 Presence of coronary angioplasty implant and graft; Z79.899 Other long term (current) drug therapy; Z87.891 Personal history of nicotine dependence
CPT/HCPCS: 36415; 71045; 71045-26; 71046; 71046-26; 80053; 81001; 82947; 83605; 83735; 83880; 84100; 84484; 85007; 85025; 85027; 85610; 86140; 87040; 87637; 87641; 93005; 94640; 94761; 94762; 96374; 97110-GP; 97112-GP; 97116-GP; 97162-GP; 99285-25; A9270-GY; J0456; J0696; J2543; J2919; J3490; J7030; J7050